=== PATIENT | male | born 1965 | race Caucasian/White ===

== ENCOUNTER 2017-09-05 22:22 | Emergency (ER) | payer SELFPAY ==
[~2017-09-05] VITALS: Ht 177.8 cm; Wt 84.1 kg
[2017-09-06 00:44] VITALS: BP 143/98
== END 2017-09-06 00:47 | disposition home or self-care (01) ==
LOC: EMS 22:24
DX: B35.3 Tinea pedis (principal)
CPT/HCPCS: 99283

== ENCOUNTER 2018-01-23 10:53 | Emergency (ER) | payer MEDICAID ==
[~2018-01-23] VITALS: Ht 182.9 cm; Wt 82.3 kg
[2018-01-23 11:12] LABS: GLUCOSE,POINT OF CARE 135 MG/DL (70-110)
[2018-01-23] MEDS ORDERED: SUCRALFATE 1 GM/10 ML SUSPENSION UDCUP PO ONE (11:45)
[2018-01-23] MEDS ORDERED: PANTOPRAZOLE SODIUM 40 MG/VIAL IVP ONE (11:45)
[2018-01-23] MEDS ORDERED: FAMOTIDINE 10 MG/ML 2 ML VIAL IVP ONE (11:45)
[2018-01-23] MEDS ORDERED: PB/HYOSCY/ATR/SCOP/LIDO/MAALOX 55 ML BOTTLE PO ONE (11:45)
[2018-01-23] MEDS ORDERED: HYDROCHLOROTHIAZIDE 25 MG TABLET PO ONE (11:45)
[2018-01-23 12:22] LABS: BASOPHILS % (AUTO) 0.4 % (0.0-2.0); EOSINOPHILS % (AUTO) 0 % (1.0-6.0); HEMOGLOBIN 17.2 g/dL (13.5-17.5); LYMPHOCYTES # (AUTO) 1.2 K/uL (1.0-4.8); LYMPHOCYTES % (AUTO) 11.1 % (22.0-44.0); MEAN CORPUSCULAR HEMOGLOBIN 32.3 pg (26.0-34.0); MEAN CORPUSCULAR HGB CONC 35.9 G/dL (31.0-37.0); MEAN CORPUSCULAR VOLUME 90 fL (80-100); MONOCYTES # (AUTO) 0.5 K/uL (0.1-1.0); MONOCYTES % (AUTO) 4.1 % (2.0-9.0); NEUTROPHILS # (AUTO) 9.4 K/uL (1.8-7.7); NEUTROPHILS % (AUTO) 84.4 % (40.0-70.0); PLATELET COUNT (AUTO) 292 K/uL (150-450); RED BLOOD CELL COUNT(AUTO) 5.32 MIL/uL (4.50-5.90); RED CELL DISTRIBUTION WIDTH 12.8 % (11.5-14.5)
[2018-01-23 12:23] LABS: HEMATOCRIT 50.9 % (41-53)
[2018-01-23 12:30] LABS: CALCIUM, TOTAL 9.4 mg/dL (8.8-10.5); CREATININE 1.27 mg/dL (0.60-1.30)
[2018-01-23] MEDS ORDERED: BARIUM SULFATE 0.1% SUSPENSION 450 ML BOTTLE PO ONE (12:30)
[2018-01-23 12:37] LABS: ALBUMIN 3.8 g/dL (3.4-5.0); BILIRUBIN,TOTAL 0.8 mg/dL (0.1-1.0); TOTAL PROTEIN, SERUM 8.7 g/dL (6.4-8.2)
[2018-01-23 13:06] VITALS: BP 185/106
[2018-01-23 13:19] LABS: APPEARANCE,URINE CLEAR (CLEAR); BILIRUBIN,URINE NEGATIVE (NEGATIVE); GLUCOSE, URINE (UA) NEGATIVE (NEGATIVE); KETONES,URINE NEGATIVE (NEGATIVE); LEUKOCYTE ESTERASE ,URINE NEGATIVE (NEGATIVE); NITRATE,URINE NEGATIVE (NEGATIVE); PH,URINE 6.5 (5.0-8.0); PROTEIN,URINE SEE CONFIRM (NEGATIVE); UROBILINOGEN,URINE 0.2 mg/dL (<=1.0)
[2018-01-23 13:28] LABS: OCCULT BLOOD,URINE NEGATIVE (NEGATIVE)
[2018-01-23 13:29] LABS: BACTERIA,URINE None Seen /HPF (None Seen); RBC,URINE None Seen /HPF (0-2); SULFOSALICYLIC ACID,URINE 2+ (Negative); WBC,URINE None Seen /HPF (0-5)
== END 2018-01-23 13:20 | disposition home or self-care (01) ==
LOC: EMS 10:54
DX: K27.9 Peptic ulcer, site unspecified, unspecified as acute or chronic, without hemorrhage or perforation (principal); I10 Essential (primary) hypertension; E11.9 Type 2 diabetes mellitus without complications; F12.90 Cannabis use, unspecified, uncomplicated
CPT/HCPCS: 36415; 74022; 80053; 81001; 82962; 83690; 84484; 85025; 93005; 96374; 96375; 99285; C9113; J3490; Z7610 ×2

== ENCOUNTER 2022-06-14 11:32 | Emergency (ER) | payer MEDICAID ==
[~2022-06-14] VITALS: Ht 172.7 cm; Wt 68.2 kg
[2022-06-14] MEDS ORDERED: KETOROLAC TROMETHAMINE 30 MG/ML VIAL IM ONE (12:45)
[2022-06-14 13:37] VITALS: BP 155/88
== END 2022-06-14 13:58 | disposition home or self-care (01) ==
LOC: EMS 11:36
DX: M67.833 Other specified disorders of tendon, right wrist (principal); E11.9 Type 2 diabetes mellitus without complications; I10 Essential (primary) hypertension; F12.90 Cannabis use, unspecified, uncomplicated
CPT/HCPCS: 99283; 82962; 73110; 96372; J1885

== ENCOUNTER 2023-01-15 09:36 | Inpatient (IN) | payer MEDICAID ==
[~2023-01-15] VITALS: Ht 170.2 cm; Wt 67.9 kg
[2023-01-15] MEDS ORDERED: ONDANSETRON HCL 4 MG/2 ML VIAL IVP ONE (10:00)
[2023-01-15] MEDS ORDERED: SODIUM CHLORIDE 0.9% 1,000 ML IV ONE (10:00)
[2023-01-15 10:39] LABS: BASOPHILS % (AUTO) 0.4 % (0.0-2.0); EOSINOPHILS % (AUTO) 0 % (1.0-6.0); HEMATOCRIT 41.9 % (41-53); LYMPHOCYTES # (AUTO) 0.8 K/uL (1.0-4.8); MEAN CORPUSCULAR HEMOGLOBIN 31.4 pg (26.0-34.0); MEAN CORPUSCULAR HGB CONC 33.4 G/dL (31.0-37.0); MEAN CORPUSCULAR VOLUME 94 fL (80-100); MONOCYTES # (AUTO) 0.5 K/uL (0.1-1.0); MONOCYTES % (AUTO) 3.8 % (2.0-9.0); NEUTROPHILS # (AUTO) 10.7 K/uL (1.8-7.7); PLATELET COUNT (AUTO) 278 K/uL (150-450); RED BLOOD CELL COUNT(AUTO) 4.46 MIL/uL (4.50-5.90); RED CELL DISTRIBUTION WIDTH 13.5 % (11.5-14.5)
[2023-01-15 10:40] LABS: NEUTROPHILS % (AUTO) 88.8 % (40.0-70.0)
[2023-01-15 10:50] LABS: CALCIUM, TOTAL 9.5 mg/dL (8.8-10.5); CREATININE 1.68 mg/dL (0.60-1.30); POTASSIUM 3.6 mmol/L (3.5-5.1)
[2023-01-15 10:55] LABS: TOTAL PROTEIN, SERUM 7.9 g/dL (6.4-8.2)
[2023-01-15] MEDS ORDERED: PANTOPRAZOLE SODIUM 40 MG/VIAL IVP ONE (11:30)
[2023-01-15] MEDS ORDERED: PB/HYOSCY/ATR/SCOP/LIDO/MAALOX 55 ML BOTTLE PO ONE (11:30)
[2023-01-15 12:09] LABS: APPEARANCE,URINE CLEAR (CLEAR); BILIRUBIN,URINE NEGATIVE (NEGATIVE); GLUCOSE, URINE (UA) 70-100 mg/dL (NEGATIVE); LEUKOCYTE ESTERASE ,URINE NEGATIVE (NEGATIVE); NITRATE,URINE NEGATIVE (NEGATIVE); OCCULT BLOOD,URINE SMALL (NEGATIVE); PH,URINE 6.5 (5.0-8.0); PROTEIN,URINE 300-600,SEE CONFIRM mg/dL (NEGATIVE); SPECIFIC GRAVITIY, URINE 1.012 (1.003-1.030); UROBILINOGEN,URINE <=1.0 mg/dL (<=1.0)
[2023-01-15 12:15] LABS: AMPHET/METH SCREEN,URINE NEGATIVE (NEGATIVE); BARBITURATE SCREEN, URINE NEGATIVE (NEGATIVE); BENZODIAZEPINES SCREEN,URINE NEGATIVE (NEGATIVE); CANNABINOID SCREEN,URINE POSITIVE (NEGATIVE); COCAINE SCREEN,URINE POSITIVE (NEGATIVE); METHADONE SCREEN, URINE NEGATIVE (NEGATIVE); OPIATE SCREEN,URINE NEGATIVE (NEGATIVE); PHENCYCLIDINE SCREEN,URINE NEGATIVE (NEGATIVE)
[2023-01-15 12:34] LABS: SULFOSALICYLIC ACID,URINE 3+ (Negative)
[2023-01-15 12:35] LABS: BACTERIA,URINE None Seen /HPF (None Seen); WBC,URINE None Seen /HPF (0-5)
[2023-01-15] MEDS ORDERED: MORPHINE SULFATE 4 MG/ML SYRINGE IVP ONE (12:45)
[2023-01-15] MEDS ORDERED: HydrALAZINE HCL 20 MG/ML VIAL IVP ONE (12:45)
[2023-01-15] MEDS: NiCARDipine HCL 25 MG in SODIUM CHLORIDE 0.9% 240 ML IV PRN ×3 (13:01→21:34)
[2023-01-15] MEDS ORDERED: ACETAMINOPHEN 325 MG TABLET PO PRN ×2 (13:45→17:45)
[2023-01-15] MEDS ORDERED: ONDANSETRON HCL 4 MG/2 ML VIAL IVP PRN ×2 (13:45→17:45)
[2023-01-15] MEDS ORDERED: 0.9% SODIUM CHLORIDE 10 ML SYRINGE IVP PRN (13:45)
[2023-01-15] MEDS ORDERED: LORazepam 2 MG/ML VIAL IVP ONE (15:00)
[2023-01-15] MEDS ORDERED: ALBUTEROL SULFATE 2.5 MG/0.5 ML NEB SOLUTION NEB PRN (17:45)
[2023-01-15] MEDS ORDERED: IPRATROPIUM BROMIDE 0.5 MG/2.5 ML NEB SOLUTION NEB PRN (17:45)
[2023-01-15] MEDS ORDERED: DEXTROSE 50%-WATER 25 GM/50 ML SYRINGE IVP PRN (17:45)
[2023-01-15] MEDS ORDERED: ZOLPIDEM TARTRATE 5 MG TABLET PO PRN (17:45)
[2023-01-15] MEDS ORDERED: MAGNESIUM HYDROXIDE SUSPENSION 30 ML UDCUP PO PRN (17:45)
[2023-01-15] MEDS ORDERED: BISACODYL 10 MG RECTAL RECTAL SUPPOSITORY PR PRN (17:45)
[2023-01-15] MEDS ORDERED: MORPHINE SULFATE 2 MG/ML SYRINGE IVP PRN (17:45)
[2023-01-15] MEDS ORDERED: HYDROCODONE/ACETAMINOPHEN 5-325 MG TABLET PO PRN (17:45)
[2023-01-15 20:00] VITALS: BP 145/77
[2023-01-15] MEDS: DOCUSATE SODIUM 100 MG CAPSULE PO SCH (20:23)
[2023-01-15 22:56] LABS: GLUCOSE,POINT OF CARE 128 MG/DL (70-110)
[2023-01-16] VITALS: BP 148/76
[2023-01-16] MEDS: HEPARIN SODIUM,PORCINE 5,000 UNITS/ML VIAL SQ SCH ×3 (00:42→16:00)
[2023-01-16] MEDS: NiCARDipine HCL 25 MG in SODIUM CHLORIDE 0.9% 240 ML IV PRN ×4 (01:01→21:02)
[2023-01-16 04:00] VITALS: BP 152/82
[2023-01-16 05:40] LABS: BASOPHILS % (AUTO) 0.3 % (0.0-2.0); EOSINOPHILS % (AUTO) 0.2 % (1.0-6.0); HEMOGLOBIN 13.5 g/dL (13.5-17.5); LYMPHOCYTES # (AUTO) 2.6 K/uL (1.0-4.8); LYMPHOCYTES % (AUTO) 14.2 % (22.0-44.0); MEAN CORPUSCULAR HEMOGLOBIN 31.7 pg (26.0-34.0); MEAN CORPUSCULAR HGB CONC 33.8 G/dL (31.0-37.0); MEAN CORPUSCULAR VOLUME 94 fL (80-100); MONOCYTES # (AUTO) 1.7 K/uL (0.1-1.0); MONOCYTES % (AUTO) 9.1 % (2.0-9.0); NEUTROPHILS # (AUTO) 13.9 K/uL (1.8-7.7); NEUTROPHILS % (AUTO) 76.2 % (40.0-70.0); PLATELET COUNT (AUTO) 269 K/uL (150-450); RED BLOOD CELL COUNT(AUTO) 4.26 MIL/uL (4.50-5.90); RED CELL DISTRIBUTION WIDTH 13.3 % (11.5-14.5)
[2023-01-16 06:02] LABS: ALBUMIN 3.4 g/dL (3.4-5.0); BILIRUBIN,TOTAL 0.9 mg/dL (0.1-1.0); CALCIUM, TOTAL 8.6 mg/dL (8.8-10.5); CREATININE 1.9 mg/dL (0.60-1.30); POTASSIUM 3.1 mmol/L (3.5-5.1)
[2023-01-16 07:06] LABS: GLUCOSE,POINT OF CARE 109 MG/DL (70-110)
[2023-01-16 08:00] VITALS: BP 163/81
[2023-01-16] MEDS: PANTOPRAZOLE SODIUM 40 MG/VIAL IVP SCH (09:18)
[2023-01-16] MEDS: DOCUSATE SODIUM 100 MG CAPSULE PO SCH ×2 (09:18→22:06)
[2023-01-16] MEDS: INSULIN LISPRO 100 UNITS/ML SQ PRN (11:12)
[2023-01-16 12:00] VITALS: BP 166/84
[2023-01-16] MEDS ORDERED: NIFEdipine 30 MG ER TABLET PO ONE (12:00)
[2023-01-16] MEDS: HydrALAZINE HCL 20 MG/ML VIAL IVP PRN (14:44)
[2023-01-16 16:00] VITALS: BP 134/68
[2023-01-16 20:00] VITALS: BP 138/76
[2023-01-16 20:26] LABS: GLUCOSE,POINT OF CARE 93 MG/DL (70-110)
[2023-01-16 20:26] LABS: GLUCOSE,POINT OF CARE 145 MG/DL (70-110)
[2023-01-16] MEDS ORDERED: POTASSIUM CHLORIDE 20 MEQ ER TABLET PO ONE (22:00)
[2023-01-17] VITALS (7 sets, daily range): BP systolic 138–168; BP diastolic 75–94
[2023-01-17] MEDS: NiCARDipine HCL 25 MG in SODIUM CHLORIDE 0.9% 240 ML IV PRN ×3 (00:05→06:53)
[2023-01-17 05:51] LABS: GLUCOSE,POINT OF CARE 95 MG/DL (70-110)
[2023-01-17 07:52] LABS: GLUCOSE,POINT OF CARE 97 MG/DL (70-110)
[2023-01-17] MEDS: HEPARIN SODIUM,PORCINE 5,000 UNITS/ML VIAL SQ SCH ×3 (07:57→17:07)
[2023-01-17] MEDS: PANTOPRAZOLE SODIUM 40 MG/VIAL IVP SCH (07:58)
[2023-01-17 08:59] LABS: BASOPHILS % (AUTO) 0.8 % (0.0-2.0); EOSINOPHILS % (AUTO) 0.6 % (1.0-6.0); HEMATOCRIT 38.3 % (41-53); HEMOGLOBIN 12.8 g/dL (13.5-17.5); LYMPHOCYTES # (AUTO) 2.4 K/uL (1.0-4.8); LYMPHOCYTES % (AUTO) 21.6 % (22.0-44.0); MEAN CORPUSCULAR HEMOGLOBIN 31.7 pg (26.0-34.0); MEAN CORPUSCULAR HGB CONC 33.5 G/dL (31.0-37.0); MEAN CORPUSCULAR VOLUME 95 fL (80-100); MONOCYTES # (AUTO) 1.2 K/uL (0.1-1.0); MONOCYTES % (AUTO) 11.3 % (2.0-9.0); NEUTROPHILS # (AUTO) 7.2 K/uL (1.8-7.7); NEUTROPHILS % (AUTO) 65.7 % (40.0-70.0); PLATELET COUNT (AUTO) 236 K/uL (150-450); RED BLOOD CELL COUNT(AUTO) 4.05 MIL/uL (4.50-5.90); RED CELL DISTRIBUTION WIDTH 13.2 % (11.5-14.5)
[2023-01-17 09:06] LABS: GLUCOSE,POINT OF CARE 87 MG/DL (70-110)
[2023-01-17 09:13] LABS: CALCIUM, TOTAL 8.8 mg/dL (8.8-10.5); CREATININE 1.87 mg/dL (0.60-1.30)
[2023-01-17] MEDS: LOSARTAN POTASSIUM 25 MG TABLET PO SCH ×2 (09:41→20:53)
[2023-01-17] MEDS: NIFEdipine 30 MG ER TABLET PO SCH (09:41)
[2023-01-17] MEDS: DOCUSATE SODIUM 100 MG CAPSULE PO SCH ×2 (09:41→20:52)
[2023-01-17] MEDS: INSULIN LISPRO 100 UNITS/ML SQ PRN (21:48)
[2023-01-17 21:51] LABS: GLUCOMETER DEV NAME(LOC) 5N.2C; GLUCOSE,POINT OF CARE 125 MG/DL (70-110)
[2023-01-17 22:56] LABS: GLUCOMETER DEV NAME(LOC) 5N.2C; GLUCOSE,POINT OF CARE 181 MG/DL (70-110)
[2023-01-18] MEDS: HEPARIN SODIUM,PORCINE 5,000 UNITS/ML VIAL SQ SCH ×4 (00:19→23:34)
[2023-01-18] MEDS: HydrALAZINE HCL 20 MG/ML VIAL IVP PRN ×3 (02:31→17:25)
[2023-01-18 05:13] VITALS: BP 164/86
[2023-01-18 07:50] VITALS: BP 168/89
[2023-01-18] MEDS: NIFEdipine 30 MG ER TABLET PO SCH (08:07)
[2023-01-18] MEDS: DOCUSATE SODIUM 100 MG CAPSULE PO SCH ×2 (08:08→20:16)
[2023-01-18] MEDS: LOSARTAN POTASSIUM 25 MG TABLET PO SCH (08:08)
[2023-01-18] MEDS: PANTOPRAZOLE SODIUM 40 MG/VIAL IVP SCH (08:08)
[2023-01-18 08:59] VITALS: BP 174/81
[2023-01-18 10:01] LABS: GLUCOMETER DEV NAME(LOC) 5N.2C; GLUCOSE,POINT OF CARE 98 MG/DL (70-110)
[2023-01-18] MEDS: CloNIDine HCL 0.1 MG TABLET PO PRN ×2 (11:11→18:59)
[2023-01-18 12:11] VITALS: BP 179/91
[2023-01-18] MEDS: AmLODIPine BESYLATE 10 MG TABLET PO SCH (12:19)
[2023-01-18 17:12] VITALS: BP 166/93
[2023-01-18 18:36] LABS: GLUCOMETER DEV NAME(LOC) 5N.1C; GLUCOSE,POINT OF CARE 96 MG/DL (70-110)
[2023-01-18 20:03] VITALS: BP 137/71
[2023-01-18] MEDS: LOSARTAN POTASSIUM 50 MG TABLET PO SCH (20:16)
[2023-01-18] MEDS: INSULIN LISPRO 100 UNITS/ML SQ PRN (20:19)
[2023-01-18 22:21] LABS: GLUCOMETER DEV NAME(LOC) 5N.1C; GLUCOSE,POINT OF CARE 125 MG/DL (70-110)
[2023-01-19 00:32] VITALS: BP 135/82
[2023-01-19 05:28] VITALS: BP 131/99
[2023-01-19 07:35] VITALS: BP 174/109
[2023-01-19] MEDS: HydrALAZINE HCL 20 MG/ML VIAL IVP PRN (08:02)
[2023-01-19] MEDS: HEPARIN SODIUM,PORCINE 5,000 UNITS/ML VIAL SQ SCH (08:02)
[2023-01-19] MEDS: DOCUSATE SODIUM 100 MG CAPSULE PO SCH (08:03)
[2023-01-19] MEDS: AmLODIPine BESYLATE 10 MG TABLET PO SCH (08:03)
[2023-01-19] MEDS: LOSARTAN POTASSIUM 50 MG TABLET PO SCH (08:03)
[2023-01-19 08:11] LABS: GLUCOMETER DEV NAME(LOC) 5N.2C; GLUCOSE,POINT OF CARE 105 MG/DL (70-110)
[2023-01-19 08:33] VITALS: BP 168/76
[2023-01-19] MEDS: CloNIDine HCL 0.1 MG TABLET PO PRN (08:34)
[2023-01-19] MEDS ORDERED: PANTOPRAZOLE SODIUM 40 MG DR TABLET PO SCH (09:00)
[2023-01-19 11:04] VITALS: BP 131/73
[2023-01-19] MEDS ORDERED: AMLO-258 PO (11:59)
[2023-01-19] MEDS ORDERED: LOSA-382 PO (11:59)
[2023-01-19 14:35] VITALS: BP 140/77
[2023-01-20 05:41] LABS: GLUCOMETER DEV NAME(LOC) 5N.2C; GLUCOSE,POINT OF CARE 83 MG/DL (70-110)
== END 2023-01-19 15:15 | disposition home or self-care (01) | DRG 199 ==
LOC: EMS 09:36 → ICU 17:50 → EMS 19:15 → 5S 01-17 15:35
PROVIDERS: ADMIT Hospitalist; ATTEND Internal Medicine
DX: I16.1 Hypertensive emergency (principal); N17.9 Acute kidney failure, unspecified; R65.10 Systemic inflammatory response syndrome (SIRS) of non-infectious origin without acute organ dysfunction; F19.10 Other psychoactive substance abuse, uncomplicated; F14.10 Cocaine abuse, uncomplicated; R10.13 Epigastric pain; I10 Essential (primary) hypertension; E11.9 Type 2 diabetes mellitus without complications; Z87.11 Personal history of peptic ulcer disease
CPT/HCPCS: 71045; 74176; 76770; 80048; 80053; 80307; 81001; 81002; 82550; 82962; 83690; 84484; 85025; 93005; 99291; C9113; G0378; J0360; J1644; J2060; J2270; J2405; J3490; J7050; 36415-L1; 36415-TC

== ENCOUNTER 2023-05-27 16:17 | Emergency (ER) | payer MEDICAID, OTHER ==
[~2023-05-27] VITALS: Ht 177.8 cm; Wt 68.2 kg
[~2023-05-27 16:17] MED LIST: AMLO-258 PO; LOSA-382 PO
[2023-05-27 16:23] VITALS: TEMP 98
[2023-05-27] MEDS ORDERED: ONDANSETRON HCL 4 MG/2 ML VIAL IVP ONE (17:15)
[2023-05-27] MEDS ORDERED: AmLODIPine BESYLATE 10 MG TABLET PO ONE (17:15)
[2023-05-27] MEDS ORDERED: SODIUM CHLORIDE 0.9% 1,000 ML IV ONE (17:15)
[2023-05-27 17:57] LABS: BASOPHILS % (AUTO) 0.3 % (0.0-2.0); EOSINOPHILS % (AUTO) 0.1 % (1.0-6.0); HEMATOCRIT 43.9 % (41-53); HEMOGLOBIN 14.2 g/dL (13.5-17.5); LYMPHOCYTES % (AUTO) 13.1 % (22.0-44.0); MEAN CORPUSCULAR HEMOGLOBIN 31.1 pg (26.0-34.0); MEAN CORPUSCULAR HGB CONC 32.4 G/dL (31.0-37.0); MEAN CORPUSCULAR VOLUME 96 fL (80-100); MONOCYTES # (AUTO) 0.4 K/uL (0.1-1.0); MONOCYTES % (AUTO) 4.9 % (2.0-9.0); NEUTROPHILS # (AUTO) 6.4 K/uL (1.8-7.7); NEUTROPHILS % (AUTO) 81.6 % (40.0-70.0); PLATELET COUNT (AUTO) 293 K/uL (150-450); RED BLOOD CELL COUNT(AUTO) 4.58 MIL/uL (4.50-5.90); RED CELL DISTRIBUTION WIDTH 13.4 % (11.5-14.5); WHITE BLOOD COUNT (AUTO) 7.9 K/uL (4.5-11.0)
[2023-05-27 18:01] LABS: ANION GAP 9 mmol/L (8-16); CALCIUM, TOTAL 9.3 mg/dL (8.8-10.5); CARBON DIOXIDE 27 mmol/L (22-29); CHLORIDE 99 mmol/L (98-107); CREATININE 1.66 mg/dL (0.60-1.30); GLOMERULAR FILTR. RATE CALC 43 mL/min (>60); GLUCOSE,RANDOM 157 mg/dL (70-110); POTASSIUM 3.5 mmol/L (3.5-5.1); SODIUM SERUM 135 mmol/L (136-145); UREA NITROGEN, BLOOD 30 mg/dL (7-18)
[2023-05-27 18:08] LABS: TROPONIN I-HIGH SENSITIVITY 34 ng/L (<76)
[2023-05-27 18:09] LABS: LACTIC ACID 1.1 mmol/L (0.4-2.0)
[2023-05-27 18:15] LABS: ALANINE AMINOTRANSFERASE 32 U/L (12-78); ALBUMIN 4.1 g/dL (3.4-5.0); ALKALINE PHOSPHATASE 102 U/L (46-116); ASPARTATE AMINOTRANSFERASE 36 U/L (15-37); BILIRUBIN,TOTAL 1.3 mg/dL (0.1-1.0); LIPASE 66 U/L (16-77); TOTAL PROTEIN, SERUM 7.9 g/dL (6.4-8.2)
[2023-05-27 18:16] LABS: ALCOHOL, BLOOD (SERUM) < 3 mg/dL (0-10)
[2023-05-27] MEDS ORDERED: HydrALAZINE HCL 20 MG/ML VIAL IVP ONE (18:45)
[2023-05-27] MEDS ORDERED: CloNIDine HCL 0.1 MG TABLET PO ONE (18:45)
[2023-05-27 19:59] LABS: APPEARANCE,URINE CLEAR (CLEAR); BILIRUBIN,URINE NEGATIVE (NEGATIVE); COLOR,URINE LIGHT YELLOW (YELLOW); GLUCOSE, URINE (UA) 70-100 mg/dL (NEGATIVE); KETONES,URINE NEGATIVE (NEGATIVE); LEUKOCYTE ESTERASE ,URINE NEGATIVE (NEGATIVE); NITRATE,URINE NEGATIVE (NEGATIVE); OCCULT BLOOD,URINE MODERATE (NEGATIVE); PH,URINE 6.5 (5.0-8.0); PH,URINE DRUG SCREEN 6.5 (5.0-8.0); PROTEIN,URINE >600,SEE CONFIRM mg/dL (NEGATIVE); SPECIFIC GRAVITIY, URINE 1.016 (1.003-1.030); UROBILINOGEN,URINE <=1.0 mg/dL (<=1.0)
[2023-05-27 20:07] LABS: AMPHET/METH SCREEN,URINE NEGATIVE (NEGATIVE); BARBITURATE SCREEN, URINE NEGATIVE (NEGATIVE); BENZODIAZEPINES SCREEN,URINE NEGATIVE (NEGATIVE); CANNABINOID SCREEN,URINE POSITIVE (NEGATIVE); COCAINE SCREEN,URINE NEGATIVE (NEGATIVE); METHADONE SCREEN, URINE NEGATIVE (NEGATIVE); OPIATE SCREEN,URINE NEGATIVE (NEGATIVE); PHENCYCLIDINE SCREEN,URINE NEGATIVE (NEGATIVE)
[2023-05-27 20:08] LABS: ALCOHOL, URINE DRUG SCREEN NEGATIVE (NEGATIVE)
[2023-05-27 20:12] LABS: SULFOSALICYLIC ACID,URINE 2+ (Negative)
[2023-05-27 20:13] LABS: BACTERIA,URINE Few /HPF (None Seen); SQUAMOUS EPITHELIAL CELL,UR Rare /LPF (None Seen)
[2023-05-27 20:25] LABS: TROPONIN I-HIGH SENSITIVITY 50 ng/L (<76)
[2023-05-27] MEDS ORDERED: LOSA-382 PO (20:27)
[2023-05-27] MEDS ORDERED: AMLO-258 PO (20:27)
[2023-05-27 21:37] VITALS: BP 152/77; PULSE 71; RESP 18
== END 2023-05-27 22:15 | disposition home or self-care (01) ==
LOC: EMS 16:18
DX: I12.9 Hypertensive chronic kidney disease with stage 1 through stage 4 chronic kidney disease, or unspecified chronic kidney disease (principal); E11.22 Type 2 diabetes mellitus with diabetic chronic kidney disease; N18.9 Chronic kidney disease, unspecified; R10.13 Epigastric pain; F12.90 Cannabis use, unspecified, uncomplicated
CPT/HCPCS: 99285; 96374; 71045; 96361; 96375; 80053; 81001; 82962; 83605; 83690; 84484; 85025; 36415; 93005; 80307; J0360; J2405; J7030; G0480; 81002

== ENCOUNTER 2023-07-04 22:48 | Inpatient (IN) | payer OTHER ==
[~2023-07-04] VITALS: Ht 165.1 cm; Wt 69.0 kg
[2023-07-04 23:22] LABS: BASOPHILS % (AUTO) 0.8 % (0.0-2.0); EOSINOPHILS % (AUTO) 0.2 % (1.0-6.0); HEMATOCRIT 41.3 % (41-53); HEMOGLOBIN 13.9 g/dL (13.5-17.5); LYMPHOCYTES # (AUTO) 2.7 K/uL (1.0-4.8); LYMPHOCYTES % (AUTO) 18.4 % (22.0-44.0); MEAN CORPUSCULAR HEMOGLOBIN 31.8 pg (26.0-34.0); MEAN CORPUSCULAR HGB CONC 33.5 G/dL (31.0-37.0); MEAN CORPUSCULAR VOLUME 95 fL (80-100); MONOCYTES # (AUTO) 0.7 K/uL (0.1-1.0); MONOCYTES % (AUTO) 4.5 % (2.0-9.0); NEUTROPHILS # (AUTO) 11.3 K/uL (1.8-7.7); NEUTROPHILS % (AUTO) 76.1 % (40.0-70.0); PLATELET COUNT (AUTO) 299 K/uL (150-450); RED BLOOD CELL COUNT(AUTO) 4.35 MIL/uL (4.50-5.90); RED CELL DISTRIBUTION WIDTH 13.5 % (11.5-14.5); WHITE BLOOD COUNT (AUTO) 14.9 K/uL (4.5-11.0)
[2023-07-04 23:29] LABS: CALCIUM, TOTAL 9.4 mg/dL (8.8-10.5); CREATININE 1.79 mg/dL (0.60-1.30); POTASSIUM 4.2 mmol/L (3.5-5.1)
[2023-07-04] MEDS ORDERED: SODIUM CHLORIDE 0.9% 1,000 ML IV ONE (23:30)
[2023-07-04] MEDS ORDERED: ONDANSETRON HCL 4 MG/2 ML VIAL IVP ONE (23:30)
[2023-07-04 23:37] LABS: ALBUMIN 3.9 g/dL (3.4-5.0); BILIRUBIN,TOTAL 0.5 mg/dL (0.1-1.0); TOTAL PROTEIN, SERUM 8.2 g/dL (6.4-8.2)
[2023-07-05] MEDS ORDERED: PANTOPRAZOLE SODIUM 40 MG/VIAL IVP ONE (00:30)
[2023-07-05] MEDS ORDERED: MAG HYDROX/ALUMINUM HYD/SIMETH ES 30 ML SUSPENSION UDCUP PO ONE (00:30)
[2023-07-05] MEDS ORDERED: HydrALAZINE HCL 20 MG/ML VIAL IVP ONE ×3 (00:30→20:45)
[2023-07-05 00:38] LABS: APPEARANCE,URINE CLEAR (CLEAR); BILIRUBIN,URINE NEGATIVE (NEGATIVE); COLOR,URINE COLORLESS (YELLOW); GLUCOSE, URINE (UA) TRACE mg/dL (NEGATIVE); KETONES,URINE NEGATIVE (NEGATIVE); LEUKOCYTE ESTERASE ,URINE NEGATIVE (NEGATIVE); NITRATE,URINE NEGATIVE (NEGATIVE); OCCULT BLOOD,URINE TRACE (NEGATIVE); PROTEIN,URINE 100-200,SEE CONFIRM mg/dL (NEGATIVE); UROBILINOGEN,URINE <=1.0 mg/dL (<=1.0)
[2023-07-05 00:47] LABS: SULFOSALICYLIC ACID,URINE 1+ (Negative)
[2023-07-05 00:48] LABS: BACTERIA,URINE None Seen /HPF (None Seen); RBC,URINE None Seen /HPF (0-2); SQUAMOUS EPITHELIAL CELL,UR None Seen /LPF (None Seen); WBC,URINE None Seen /HPF (0-5)
[2023-07-05] MEDS ORDERED: FentaNYL CITRATE PF 100 MCG/2 ML VIAL IVP ONE (02:45)
[2023-07-05 05:48] LABS: COVID AG,FIA SOURCE NASAL SWAB
[2023-07-05 06:06] LABS: SARS-COV2 (COVID) ANTIGEN,FIA Negative (Negative)
[2023-07-05 08:30] VITALS: BP 189/110; PULSE 73; RESP 17; TEMP 98.7
[2023-07-05 08:32] VITALS: BP 159/107
[2023-07-05] MEDS ORDERED: CloNIDine HCL 0.1 MG TABLET PO ONE (11:15)
[2023-07-05 11:26] VITALS: BP 212/114; PULSE 79; RESP 17; TEMP 99
[2023-07-05] MEDS ORDERED: ACETAMINOPHEN 325 MG TABLET PO PRN (11:45)
[2023-07-05] MEDS ORDERED: INSULIN LISPRO 100 UNITS/ML SQ PRN (11:45)
[2023-07-05] MEDS ORDERED: MAGNESIUM HYDROXIDE SUSPENSION 30 ML UDCUP PO PRN (11:45)
[2023-07-05] MEDS ORDERED: ONDANSETRON HCL 4 MG/2 ML VIAL IVP PRN (11:45)
[2023-07-05] MEDS ORDERED: DEXTROSE 50%-WATER 25 GM/50 ML SYRINGE IVP PRN (11:45)
[2023-07-05] MEDS ORDERED: MORPHINE SULFATE 2 MG/ML SYRINGE IVP PRN (11:45)
[2023-07-05] MEDS: SODIUM CHLORIDE 0.9% 1,000 ML IV SCH (12:40)
[2023-07-05] MEDS: PANTOPRAZOLE SODIUM 40 MG/VIAL IVP SCH (12:40)
[2023-07-05] MEDS ORDERED: PNEUMOCOCCAL VACCINE POLYVALENT 0.5 ML SYRINGE [PPSV23] IM. ONE (15:00)
[2023-07-05] MEDS ORDERED: INFLUENZA VIRUS VACCINE QVS 2023-24 (6MO+)/PF 60 MCG/0.5 ML SYRINGE IM. ONE (15:00)
[2023-07-05 15:44] VITALS: BP 178/93; PULSE 65; RESP 18; TEMP 98.4
[2023-07-05] MEDS: HydrALAZINE HCL 20 MG/ML VIAL IVP PRN (15:46)
[2023-07-05] MEDS: HEPARIN SODIUM,PORCINE 5,000 UNITS/ML VIAL SQ SCH ×2 (15:46→23:49)
[2023-07-05 17:17] LABS: GLUCOMETER DEV NAME(LOC) 5N.1C; GLUCOSE,POINT OF CARE 137 MG/DL (70-110)
[2023-07-05 19:15] LABS: APPEARANCE,URINE CLEAR (CLEAR); BILIRUBIN,URINE NEGATIVE (NEGATIVE); COLOR,URINE LIGHT YELLOW (YELLOW); GLUCOSE, URINE (UA) NEGATIVE (NEGATIVE); KETONES,URINE NEGATIVE (NEGATIVE); LEUKOCYTE ESTERASE ,URINE NEGATIVE (NEGATIVE); NITRATE,URINE NEGATIVE (NEGATIVE); OCCULT BLOOD,URINE TRACE (NEGATIVE); PH,URINE 6.5 (5.0-8.0); PH,URINE DRUG SCREEN 6.5 (5.0-8.0); PROTEIN,URINE 300-600,SEE CONFIRM mg/dL (NEGATIVE); SPECIFIC GRAVITIY, URINE 1.012 (1.003-1.030); UROBILINOGEN,URINE <=1.0 mg/dL (<=1.0)
[2023-07-05 19:24] LABS: ALCOHOL, URINE DRUG SCREEN NEGATIVE (NEGATIVE); AMPHET/METH SCREEN,URINE NEGATIVE (NEGATIVE); BACTERIA,URINE None Seen /HPF (None Seen); BARBITURATE SCREEN, URINE NEGATIVE (NEGATIVE); BENZODIAZEPINES SCREEN,URINE NEGATIVE (NEGATIVE); CANNABINOID SCREEN,URINE POSITIVE (NEGATIVE); COCAINE SCREEN,URINE NEGATIVE (NEGATIVE); METHADONE SCREEN, URINE NEGATIVE (NEGATIVE); OPIATE SCREEN,URINE NEGATIVE (NEGATIVE); PHENCYCLIDINE SCREEN,URINE NEGATIVE (NEGATIVE)
[2023-07-05 19:25] LABS: RBC,URINE None Seen /HPF (0-2); WBC,URINE 0-2 /HPF (0-5)
[2023-07-05] MEDS: DOCUSATE SODIUM 100 MG CAPSULE PO SCH (20:14)
[2023-07-05 20:22] VITALS: BP 169/93; PULSE 61; RESP 19; TEMP 98.3
[2023-07-05] MEDS: AmLODIPine BESYLATE 10 MG TABLET PO SCH (20:57)
[2023-07-05 22:31] VITALS: BP 162/94; PULSE 63
[2023-07-06 00:36] VITALS: BP 156/89; PULSE 71; RESP 17; TEMP 98.4
[2023-07-06 02:06] LABS: GLUCOMETER DEV NAME(LOC) 5N.1C; GLUCOSE,POINT OF CARE 125 MG/DL (70-110)
[2023-07-06 02:06] LABS: GLUCOMETER DEV NAME(LOC) 5N.1C; GLUCOSE,POINT OF CARE 98 MG/DL (70-110)
[2023-07-06 04:26] VITALS: BP 147/101; PULSE 74; RESP 17; TEMP 98.4
[2023-07-06] MEDS: SODIUM CHLORIDE 0.9% 1,000 ML IV SCH ×2 (04:34→21:14)
[2023-07-06 07:54] VITALS: BP 179/97; PULSE 74; RESP 18; TEMP 98.6
[2023-07-06] MEDS: HEPARIN SODIUM,PORCINE 5,000 UNITS/ML VIAL SQ SCH ×2 (08:37→16:34)
[2023-07-06] MEDS: DOCUSATE SODIUM 100 MG CAPSULE PO SCH ×2 (08:37→21:00)
[2023-07-06] MEDS: PANTOPRAZOLE SODIUM 40 MG/VIAL IVP SCH (08:37)
[2023-07-06] MEDS: HydrALAZINE HCL 20 MG/ML VIAL IVP PRN (08:39)
[2023-07-06] MEDS: AmLODIPine BESYLATE 10 MG TABLET PO SCH (09:08)
[2023-07-06 10:53] LABS: BASOPHILS % (AUTO) 0.8 % (0.0-2.0); EOSINOPHILS % (AUTO) 1.5 % (1.0-6.0); HEMATOCRIT 43.2 % (41-53); HEMOGLOBIN 14.6 g/dL (13.5-17.5); LYMPHOCYTES # (AUTO) 2.9 K/uL (1.0-4.8); LYMPHOCYTES % (AUTO) 31.8 % (22.0-44.0); MEAN CORPUSCULAR HGB CONC 33.9 G/dL (31.0-37.0); MEAN CORPUSCULAR VOLUME 95 fL (80-100); MONOCYTES % (AUTO) 10.6 % (2.0-9.0); NEUTROPHILS % (AUTO) 55.3 % (40.0-70.0); PLATELET COUNT (AUTO) 304 K/uL (150-450); RED BLOOD CELL COUNT(AUTO) 4.57 MIL/uL (4.50-5.90); RED CELL DISTRIBUTION WIDTH 13.6 % (11.5-14.5); WHITE BLOOD COUNT (AUTO) 9.1 K/uL (4.5-11.0)
[2023-07-06 11:01] LABS: CALCIUM, TOTAL 8.8 mg/dL (8.8-10.5); CREATININE 1.67 mg/dL (0.60-1.30)
[2023-07-06 11:05] VITALS: BP 180/84; PULSE 59; RESP 18; TEMP 98.3
[2023-07-06] MEDS: LOSARTAN POTASSIUM 25 MG TABLET PO SCH ×2 (11:07→21:13)
[2023-07-06 15:19] VITALS: BP 151/86; PULSE 60; RESP 19; TEMP 98
[2023-07-06 17:21] LABS: GLUCOMETER DEV NAME(LOC) 5N.1C; GLUCOSE,POINT OF CARE 96 MG/DL (70-110)
[2023-07-06 19:46] LABS: GLUCOMETER DEV NAME(LOC) 5N.1C; GLUCOSE,POINT OF CARE 86 MG/DL (70-110)
[2023-07-06 21:31] LABS: GLUCOMETER DEV NAME(LOC) 5S.1B; GLUCOSE,POINT OF CARE 108 MG/DL (70-110)
[2023-07-06 22:51] LABS: GLUCOMETER DEV NAME(LOC) 5N.2C; GLUCOSE,POINT OF CARE 101 MG/DL (70-110)
[2023-07-06 23:51] VITALS: BP 164/91; PULSE 64; RESP 16; TEMP 98.7
[2023-07-07] VITALS (12 sets, daily range): BP systolic 150–196; BP diastolic 80–102; PULSE 57–64; RESP 16–20; TEMP 98–98.4
[2023-07-07] MEDS: HEPARIN SODIUM,PORCINE 5,000 UNITS/ML VIAL SQ SCH ×3 (00:23→16:09)
[2023-07-07] MEDS: HydrALAZINE HCL 20 MG/ML VIAL IVP PRN ×3 (00:27→16:05)
[2023-07-07 06:31] LABS: GLUCOMETER DEV NAME(LOC) 5N.1C; GLUCOSE,POINT OF CARE 107 MG/DL (70-110)
[2023-07-07] MEDS: PANTOPRAZOLE SODIUM 40 MG/VIAL IVP SCH (08:15)
[2023-07-07] MEDS: LOSARTAN POTASSIUM 25 MG TABLET PO SCH (08:17)
[2023-07-07] MEDS: DOCUSATE SODIUM 100 MG CAPSULE PO SCH ×2 (08:17→20:53)
[2023-07-07] MEDS: AmLODIPine BESYLATE 10 MG TABLET PO SCH (08:17)
[2023-07-07] MEDS: CloNIDine HCL 0.1 MG TABLET PO SCH ×2 (10:46→20:53)
[2023-07-07] MEDS: LOSARTAN POTASSIUM 50 MG TABLET PO SCH ×2 (10:46→20:53)
[2023-07-07 12:00] LABS: GLUCOMETER DEV NAME(LOC) 5S.1B; GLUCOSE,POINT OF CARE 81 MG/DL (70-110)
[2023-07-07 17:06] LABS: GLUCOMETER DEV NAME(LOC) 5S.1B; GLUCOSE,POINT OF CARE 93 MG/DL (70-110)
[2023-07-07 22:41] LABS: GLUCOMETER DEV NAME(LOC) 5N.2C; GLUCOSE,POINT OF CARE 117 MG/DL (70-110)
[2023-07-08] VITALS: BP 164/96; PULSE 55; RESP 18; TEMP 98.4
[2023-07-08] MEDS: HEPARIN SODIUM,PORCINE 5,000 UNITS/ML VIAL SQ SCH ×2 (00:10→08:09)
[2023-07-08 04:00] VITALS: BP 143/87; RESP 18; TEMP 98.2
[2023-07-08] MEDS: DOCUSATE SODIUM 100 MG CAPSULE PO SCH (08:08)
[2023-07-08] MEDS: PANTOPRAZOLE SODIUM 40 MG/VIAL IVP SCH (08:08)
[2023-07-08] MEDS: CloNIDine HCL 0.1 MG TABLET PO SCH (08:09)
[2023-07-08] MEDS: AmLODIPine BESYLATE 10 MG TABLET PO SCH (08:09)
[2023-07-08] MEDS: LOSARTAN POTASSIUM 50 MG TABLET PO SCH (08:09)
[2023-07-08 08:34] VITALS: BP 189/90; PULSE 62; RESP 19; TEMP 98.7
[2023-07-08] MEDS: HydrALAZINE HCL 20 MG/ML VIAL IVP PRN (08:54)
[2023-07-08 12:43] VITALS: BP 156/86; PULSE 58; RESP 18; TEMP 97.8
[2023-07-08] MEDS ORDERED: CLON-441 PO (14:05)
[2023-07-08 14:46] LABS: CALCIUM, TOTAL 9.1 mg/dL (8.8-10.5); CREATININE 1.76 mg/dL (0.60-1.30); POTASSIUM 4.4 mmol/L (3.5-5.1)
[2023-07-08 18:02] LABS: GLUCOMETER DEV NAME(LOC) 5N.2C; GLUCOSE,POINT OF CARE 97 MG/DL (70-110)
[2023-07-08 20:06] LABS: GLUCOMETER DEV NAME(LOC) 5N.1C; GLUCOSE,POINT OF CARE 76 MG/DL (70-110)
== END 2023-07-08 15:15 | disposition home or self-care (01) | DRG 48 ==
LOC: EMS 22:49 → 6N 07-05 05:51 → 5S 07-05 06:32
PROVIDERS: ADMIT Internal Medicine; ATTEND Internal Medicine
DX: E11.43 Type 2 diabetes mellitus with diabetic autonomic (poly)neuropathy (principal); N17.9 Acute kidney failure, unspecified; I16.1 Hypertensive emergency; K31.84 Gastroparesis; I10 Essential (primary) hypertension; Z20.822 Contact with and (suspected) exposure to COVID-19; Z87.11 Personal history of peptic ulcer disease; Z83.3 Family history of diabetes mellitus; Z91.199 Patient's noncompliance with other medical treatment and regimen due to unspecified reason
CPT/HCPCS: 71045; 74176; 80048; 80053; 80307; 81001; 81002; 81003; 82962; 83690; 85025; 93005; 99285; C9113; J0360; J1644; J2405; J3010; J7030; 36415-L1; 36415-TC

== ENCOUNTER 2023-11-03 04:52 | Inpatient (IN) | payer OTHER ==
[~2023-11-03] VITALS: Ht 170.2 cm; Wt 67.2 kg
[~2023-11-03 04:52] MED LIST changes: +CLON-441 PO
[2023-11-03 05:28] LABS: EOSINOPHILS % (AUTO) 0.8 % (1.0-6.0); HEMOGLOBIN 14.4 g/dL (13.5-17.5)
[2023-11-03 05:31] LABS: BASOPHILS % (AUTO) 0.6 % (0.0-2.0); HEMATOCRIT 42.9 % (41-53); LYMPHOCYTES # (AUTO) 2.7 K/uL (1.0-4.8); LYMPHOCYTES % (AUTO) 18.8 % (22.0-44.0); MEAN CORPUSCULAR HEMOGLOBIN 31.6 pg (26.0-34.0); MEAN CORPUSCULAR HGB CONC 33.5 G/dL (31.0-37.0); MEAN CORPUSCULAR VOLUME 94 fL (80-100); MONOCYTES # (AUTO) 0.8 K/uL (0.1-1.0); MONOCYTES % (AUTO) 5.5 % (2.0-9.0); NEUTROPHILS # (AUTO) 10.5 K/uL (1.8-7.7); NEUTROPHILS % (AUTO) 74.3 % (40.0-70.0); PLATELET COUNT (AUTO) 367 K/uL (150-450); RED BLOOD CELL COUNT(AUTO) 4.55 MIL/uL (4.50-5.90); RED CELL DISTRIBUTION WIDTH 13.1 % (11.5-14.5); WHITE BLOOD COUNT (AUTO) 14.2 K/uL (4.5-11.0)
[2023-11-03 05:39] LABS: APPEARANCE,URINE CLEAR (CLEAR); BILIRUBIN,URINE NEGATIVE (NEGATIVE); COLOR,URINE COLORLESS (YELLOW); GLUCOSE, URINE (UA) 70-100 mg/dL (NEGATIVE); KETONES,URINE NEGATIVE (NEGATIVE); LEUKOCYTE ESTERASE ,URINE NEGATIVE (NEGATIVE); NITRATE,URINE NEGATIVE (NEGATIVE); OCCULT BLOOD,URINE SMALL (NEGATIVE); PH,URINE 6.5 (5.0-8.0); PROTEIN,URINE 300-600,SEE CONFIRM mg/dL (NEGATIVE); SPECIFIC GRAVITIY, URINE 1.012 (1.003-1.030); UROBILINOGEN,URINE <=1.0 mg/dL (<=1.0)
[2023-11-03] MEDS: SODIUM CHLORIDE 0.9% 1,000 ML IV ONE (05:39)
[2023-11-03 05:40] LABS: PH,URINE DRUG SCREEN 6.5 (5.0-8.0)
[2023-11-03] MEDS: ONDANSETRON HCL 4 MG/2 ML VIAL IVP ONE (05:42)
[2023-11-03 05:45] LABS: AMPHET/METH SCREEN,URINE NEGATIVE (NEGATIVE); BARBITURATE SCREEN, URINE NEGATIVE (NEGATIVE); BENZODIAZEPINES SCREEN,URINE NEGATIVE (NEGATIVE); CANNABINOID SCREEN,URINE POSITIVE (NEGATIVE); COCAINE SCREEN,URINE NEGATIVE (NEGATIVE); METHADONE SCREEN, URINE NEGATIVE (NEGATIVE); OPIATE SCREEN,URINE NEGATIVE (NEGATIVE); PHENCYCLIDINE SCREEN,URINE NEGATIVE (NEGATIVE)
[2023-11-03 06:00] LABS: ALCOHOL, URINE DRUG SCREEN NEGATIVE (NEGATIVE)
[2023-11-03 06:10] LABS: BACTERIA,URINE None Seen /HPF (None Seen); SQUAMOUS EPITHELIAL CELL,UR Few /LPF (None Seen); SULFOSALICYLIC ACID,URINE 4+ (Negative); WBC,URINE 0-2 /HPF (0-5)
[2023-11-03 06:28] LABS: TROPONIN I-HIGH SENSITIVITY 28 ng/L (<76)
[2023-11-03 06:33] LABS: CALCIUM, TOTAL 9.4 mg/dL (8.8-10.5); CREATININE 1.68 mg/dL (0.60-1.30); POTASSIUM 3.6 mmol/L (3.5-5.1)
[2023-11-03] MEDS: NITROGLYCERIN 2% (1 GM=INCH) OINTMENT PACKET TP ONE (06:36)
[2023-11-03] MEDS: CloNIDine HCL 0.1 MG TABLET PO ONE (06:36)
[2023-11-03 06:39] LABS: ALBUMIN 3.9 g/dL (3.4-5.0); BILIRUBIN,TOTAL 0.7 mg/dL (0.1-1.0); TOTAL PROTEIN, SERUM 8.1 g/dL (6.4-8.2)
[2023-11-03] MEDS: ENALAPRILAT DIHYDRATE 2.5 MG/2 ML VIAL IVP ONE (06:39)
[2023-11-03] MEDS: ASPIRIN 81 MG CHEWABLE TABLET PO ONE (07:07)
[2023-11-03] MEDS ORDERED: FentaNYL CITRATE PF 100 MCG/2 ML VIAL ONE (07:27)
[2023-11-03] MEDS: FentaNYL CITRATE PF 100 MCG/2 ML VIAL IVP ONE (07:28)
[2023-11-03] MEDS: NITROPRUSSIDE SODIUM 50 MG in DEXTROSE 5%-WATER 248 ML IV PRN (07:29)
[2023-11-03 07:35] LABS: TROPONIN I-HIGH SENSITIVITY 23 ng/L (<76)
[2023-11-03] MEDS ORDERED: DEXTROSE 50%-WATER 25 GM/50 ML SYRINGE IVP PRN (08:30)
[2023-11-03] MEDS ORDERED: ACETAMINOPHEN 325 MG TABLET PO PRN (08:30)
[2023-11-03] MEDS ORDERED: OxyCODONE HCL/ACETAMINOPHEN 5-325 MG TABLET PO PRN (08:30)
[2023-11-03] MEDS ORDERED: ONDANSETRON HCL 4 MG/2 ML VIAL IVP PRN (08:30)
[2023-11-03] MEDS ORDERED: ZOLPIDEM TARTRATE 5 MG TABLET PO PRN (08:30)
[2023-11-03] MEDS: DOCUSATE SODIUM 100 MG CAPSULE PO SCH (09:06)
[2023-11-03] MEDS: AmLODIPine BESYLATE 10 MG TABLET PO SCH (09:07)
[2023-11-03] MEDS: LOSARTAN POTASSIUM 25 MG TABLET PO SCH (09:07)
[2023-11-03] MEDS: FAMOTIDINE 20 MG TABLET PO SCH (09:07)
[2023-11-03] MEDS: INSULIN LISPRO 100 UNITS/ML SQ PRN (14:26)
[2023-11-03 14:30] VITALS: BP 165/85; PULSE 76; RESP 25; TEMP 97.7; O2SAT 98
[2023-11-03 14:35] LABS: GLUCOMETER DEV NAME(LOC) ICUN.5; GLUCOSE,POINT OF CARE 169 MG/DL (70-110)
[2023-11-03 16:00] VITALS: BP 130/68; PULSE 60; RESP 18; TEMP 98.2; O2SAT 95
[2023-11-03 17:11] LABS: GLUCOMETER DEV NAME(LOC) ICU.S6; GLUCOSE,POINT OF CARE 103 MG/DL (70-110)
[2023-11-03 20:00] VITALS: BP 157/89; PULSE 60; RESP 18; TEMP 98.7
[2023-11-03] MEDS: CHLORHEXIDINE GLUCONATE 2% TOWELETTE [2'S/6'S] TP SCH (21:09)
[2023-11-03 21:21] LABS: GLUCOMETER DEV NAME(LOC) ICUN.5; GLUCOSE,POINT OF CARE 115 MG/DL (70-110)
[2023-11-04] VITALS: BP 138/85; PULSE 50; RESP 16; TEMP 98.7
[2023-11-04 04:00] VITALS: BP 154/86; PULSE 51; RESP 18; TEMP 98.8
[2023-11-04 05:12] LABS: BASOPHILS % (AUTO) 0.5 % (0.0-2.0); EOSINOPHILS % (AUTO) 0.4 % (1.0-6.0); HEMOGLOBIN 12.6 g/dL (13.5-17.5); LYMPHOCYTES # (AUTO) 2.8 K/uL (1.0-4.8); LYMPHOCYTES % (AUTO) 17.6 % (22.0-44.0); MEAN CORPUSCULAR HEMOGLOBIN 31.9 pg (26.0-34.0); MEAN CORPUSCULAR HGB CONC 33.9 G/dL (31.0-37.0); MEAN CORPUSCULAR VOLUME 94 fL (80-100); MONOCYTES # (AUTO) 1.4 K/uL (0.1-1.0); MONOCYTES % (AUTO) 8.9 % (2.0-9.0); NEUTROPHILS # (AUTO) 11.4 K/uL (1.8-7.7); NEUTROPHILS % (AUTO) 72.6 % (40.0-70.0); PLATELET COUNT (AUTO) 308 K/uL (150-450); RED BLOOD CELL COUNT(AUTO) 3.93 MIL/uL (4.50-5.90); RED CELL DISTRIBUTION WIDTH 13.2 % (11.5-14.5); WHITE BLOOD COUNT (AUTO) 15.8 K/uL (4.5-11.0)
[2023-11-04 05:21] LABS: GLUCOMETER DEV NAME(LOC) ICU.S6; GLUCOSE,POINT OF CARE 106 MG/DL (70-110)
[2023-11-04 05:27] LABS: BILIRUBIN,TOTAL 0.8 mg/dL (0.1-1.0); CALCIUM, TOTAL 8.7 mg/dL (8.8-10.5); CREATININE 1.83 mg/dL (0.60-1.30); POTASSIUM 3.9 mmol/L (3.5-5.1); TOTAL PROTEIN, SERUM 6.5 g/dL (6.4-8.2)
[2023-11-04 08:00] VITALS: BP 180/92; PULSE 71; RESP 15; TEMP 98.2
[2023-11-04] MEDS: LOSARTAN POTASSIUM 25 MG TABLET PO ONE (10:08)
[2023-11-04 10:50] LABS: APPEARANCE,URINE CLEAR (CLEAR); BILIRUBIN,URINE NEGATIVE (NEGATIVE); COLOR,URINE COLORLESS (YELLOW); GLUCOSE, URINE (UA) NEGATIVE (NEGATIVE); KETONES,URINE NEGATIVE (NEGATIVE); LEUKOCYTE ESTERASE ,URINE NEGATIVE (NEGATIVE); NITRATE,URINE NEGATIVE (NEGATIVE); OCCULT BLOOD,URINE NEGATIVE (NEGATIVE); PROTEIN,URINE 30-70 mg/dL (NEGATIVE); SPECIFIC GRAVITIY, URINE 1.007 (1.003-1.030); UROBILINOGEN,URINE <=1.0 mg/dL (<=1.0)
[2023-11-04 12:00] VITALS: BP 192/119; PULSE 70; RESP 16; TEMP 98.6
[2023-11-04] MEDS: NITROPRUSSIDE SODIUM 50 MG in DEXTROSE 5%-WATER 248 ML IV PRN (12:36)
[2023-11-04 13:01] LABS: GLUCOMETER DEV NAME(LOC) ICU.S6; GLUCOSE,POINT OF CARE 94 MG/DL (70-110)
[2023-11-04 16:00] VITALS: BP 177/94; PULSE 79; RESP 20; TEMP 98.5
[2023-11-04 18:26] LABS: GLUCOMETER DEV NAME(LOC) ICU.S6; GLUCOSE,POINT OF CARE 91 MG/DL (70-110)
[2023-11-04 20:00] VITALS: BP 178/102; PULSE 62; RESP 19; TEMP 98.6
[2023-11-04] MEDS: LOSARTAN POTASSIUM 50 MG TABLET PO SCH (20:58)
[2023-11-04 22:21] LABS: GLUCOMETER DEV NAME(LOC) ICU.S6; GLUCOSE,POINT OF CARE 116 MG/DL (70-110)
[2023-11-05] VITALS: BP 154/97; PULSE 54; RESP 15; TEMP 98.7
[2023-11-05 04:00] VITALS: BP 169/81; PULSE 58; RESP 12; TEMP 98.3
[2023-11-05 06:00] LABS: BASOPHILS % (AUTO) 0.6 % (0.0-2.0); EOSINOPHILS % (AUTO) 1.9 % (1.0-6.0); HEMATOCRIT 38.5 % (41-53); HEMOGLOBIN 12.9 g/dL (13.5-17.5); LYMPHOCYTES # (AUTO) 2.6 K/uL (1.0-4.8); LYMPHOCYTES % (AUTO) 24.8 % (22.0-44.0); MEAN CORPUSCULAR HEMOGLOBIN 31.5 pg (26.0-34.0); MEAN CORPUSCULAR HGB CONC 33.6 G/dL (31.0-37.0); MEAN CORPUSCULAR VOLUME 94 fL (80-100); MONOCYTES # (AUTO) 0.9 K/uL (0.1-1.0); MONOCYTES % (AUTO) 8.9 % (2.0-9.0); NEUTROPHILS # (AUTO) 6.7 K/uL (1.8-7.7); NEUTROPHILS % (AUTO) 63.8 % (40.0-70.0); PLATELET COUNT (AUTO) 309 K/uL (150-450); RED BLOOD CELL COUNT(AUTO) 4.11 MIL/uL (4.50-5.90); RED CELL DISTRIBUTION WIDTH 12.9 % (11.5-14.5); WHITE BLOOD COUNT (AUTO) 10.4 K/uL (4.5-11.0)
[2023-11-05 06:01] LABS: CALCIUM, TOTAL 8.8 mg/dL (8.8-10.5); CREATININE 1.69 mg/dL (0.60-1.30)
[2023-11-05 08:00] VITALS: BP 218/135; PULSE 65; RESP 11; TEMP 98.8
[2023-11-05] MEDS: AmLODIPine BESYLATE 10 MG TABLET PO SCH (08:49)
[2023-11-05] MEDS: LOSARTAN POTASSIUM 50 MG TABLET PO SCH (08:50)
[2023-11-05 11:06] LABS: GLUCOMETER DEV NAME(LOC) ICU.S6; GLUCOSE,POINT OF CARE 105 MG/DL (70-110)
[2023-11-05 12:00] VITALS: BP 194/98; PULSE 69; RESP 16; TEMP 98.3
[2023-11-05 12:46] LABS: GLUCOMETER DEV NAME(LOC) ICUN.5; GLUCOSE,POINT OF CARE 139 MG/DL (70-110)
[2023-11-05 16:00] VITALS: BP 188/106; PULSE 94; RESP 11; TEMP 99
[2023-11-05 20:00] VITALS: BP 163/88; PULSE 83; RESP 13; TEMP 98.4
[2023-11-05 21:36] LABS: GLUCOMETER DEV NAME(LOC) ICUN.5; GLUCOSE,POINT OF CARE 126 MG/DL (70-110)
[2023-11-06] VITALS: BP 149/83; PULSE 73; RESP 10; TEMP 98.4
[2023-11-06 04:00] VITALS: BP 120/57; PULSE 61; RESP 17; TEMP 98.6
[2023-11-06 05:28] LABS: BASOPHILS % (AUTO) 0.9 % (0.0-2.0); EOSINOPHILS % (AUTO) 3.1 % (1.0-6.0); HEMATOCRIT 38.7 % (41-53); HEMOGLOBIN 12.8 g/dL (13.5-17.5); LYMPHOCYTES # (AUTO) 2.8 K/uL (1.0-4.8); LYMPHOCYTES % (AUTO) 23.2 % (22.0-44.0); MEAN CORPUSCULAR HEMOGLOBIN 31.5 pg (26.0-34.0); MEAN CORPUSCULAR HGB CONC 33.1 G/dL (31.0-37.0); MEAN CORPUSCULAR VOLUME 95 fL (80-100); MONOCYTES # (AUTO) 1.3 K/uL (0.1-1.0); MONOCYTES % (AUTO) 10.6 % (2.0-9.0); NEUTROPHILS # (AUTO) 7.4 K/uL (1.8-7.7); NEUTROPHILS % (AUTO) 62.2 % (40.0-70.0); PLATELET COUNT (AUTO) 345 K/uL (150-450); RED BLOOD CELL COUNT(AUTO) 4.07 MIL/uL (4.50-5.90); RED CELL DISTRIBUTION WIDTH 13.2 % (11.5-14.5); WHITE BLOOD COUNT (AUTO) 11.9 K/uL (4.5-11.0)
[2023-11-06 05:41] LABS: CALCIUM, TOTAL 8.9 mg/dL (8.8-10.5); CREATININE 1.79 mg/dL (0.60-1.30); POTASSIUM 4.2 mmol/L (3.5-5.1)
[2023-11-06 06:36] LABS: GLUCOMETER DEV NAME(LOC) ICUN.5; GLUCOSE,POINT OF CARE 107 MG/DL (70-110)
[2023-11-06 08:00] VITALS: BP 189/95; PULSE 82; RESP 19; TEMP 98.3
[2023-11-06] MEDS: CloNIDine HCL 0.1 MG TABLET PO SCH (08:25)
[2023-11-06 12:00] VITALS: BP 167/55; PULSE 75; RESP 16; TEMP 98
[2023-11-06 16:00] VITALS: BP 153/94; PULSE 63; RESP 18; TEMP 97.8
[2023-11-06 18:37] LABS: GLUCOMETER DEV NAME(LOC) ICU.S6; GLUCOSE,POINT OF CARE 97 MG/DL (70-110)
[2023-11-06 18:37] LABS: GLUCOMETER DEV NAME(LOC) ICU.S6; GLUCOSE,POINT OF CARE 110 MG/DL (70-110)
[2023-11-06 20:00] VITALS: BP 173/104; PULSE 60; RESP 18; TEMP 98.2
[2023-11-06 21:36] LABS: GLUCOMETER DEV NAME(LOC) ICU.S6; GLUCOSE,POINT OF CARE 93 MG/DL (70-110)
[2023-11-07] VITALS: BP 159/75; PULSE 56; RESP 18; TEMP 98.6
[2023-11-07 04:00] VITALS: BP 136/76; PULSE 76; RESP 21; TEMP 98.4
[2023-11-07 05:31] LABS: BASOPHILS % (AUTO) 0.9 % (0.0-2.0); HEMATOCRIT 39.2 % (41-53); HEMOGLOBIN 12.9 g/dL (13.5-17.5); LYMPHOCYTES # (AUTO) 2.4 K/uL (1.0-4.8); MEAN CORPUSCULAR HGB CONC 32.8 G/dL (31.0-37.0); MEAN CORPUSCULAR VOLUME 95 fL (80-100); MONOCYTES # (AUTO) 1.1 K/uL (0.1-1.0); MONOCYTES % (AUTO) 10.8 % (2.0-9.0); NEUTROPHILS % (AUTO) 60.3 % (40.0-70.0); PLATELET COUNT (AUTO) 342 K/uL (150-450); RED BLOOD CELL COUNT(AUTO) 4.15 MIL/uL (4.50-5.90); RED CELL DISTRIBUTION WIDTH 13.2 % (11.5-14.5)
[2023-11-07 05:40] LABS: CALCIUM, TOTAL 9.1 mg/dL (8.8-10.5); CREATININE 1.79 mg/dL (0.60-1.30); POTASSIUM 4.4 mmol/L (3.5-5.1)
[2023-11-07 06:36] LABS: GLUCOMETER DEV NAME(LOC) ICU.S6; GLUCOSE,POINT OF CARE 67 MG/DL (70-110)
[2023-11-07 07:00] LABS: GLUCOMETER DEV NAME(LOC) ICU.S6; GLUCOSE,POINT OF CARE 118 MG/DL (70-110)
[2023-11-07 08:00] VITALS: BP 183/90; PULSE 65; RESP 12; TEMP 98.2; O2SAT 98
[2023-11-07] MEDS ORDERED: CLON0.1T2 PO (08:10)
[2023-11-07] MEDS ORDERED: LOSA-382 PO (08:11)
[2023-11-07] MEDS ORDERED: AMLO-258 PO (08:12)
== END 2023-11-07 10:00 | disposition home or self-care (01) | DRG 199 ==
LOC: EMS 04:52 → ICUN 08:01 → ICU 12:18
PROVIDERS: ADMIT Internal Medicine; ATTEND Internal Medicine
DX: I16.1 Hypertensive emergency (principal); N17.9 Acute kidney failure, unspecified; N18.30 Chronic kidney disease, stage 3 unspecified; Z91.199 Patient's noncompliance with other medical treatment and regimen due to unspecified reason; E11.22 Type 2 diabetes mellitus with diabetic chronic kidney disease; I12.9 Hypertensive chronic kidney disease with stage 1 through stage 4 chronic kidney disease, or unspecified chronic kidney disease; Z83.3 Family history of diabetes mellitus
CPT/HCPCS: 71045; 74176; 80048; 80053; 80307; 81001; 81002; 81003; 82962; 83690; 84484; 85025; 87081; 93005; 99291; J2405; J3010; J3490; J7060; 36415-L1; 36415-TC

== ENCOUNTER 2024-12-15 00:33 | Inpatient (IN) | payer OTHER ==
[~2024-12-15] VITALS: Ht 177.8 cm; Wt 69.8 kg
[~2024-12-15 00:33] MED LIST changes: -CLON-441 PO; +CLON0.1T2 PO; +HYDR25TA84 PO; +TAMS0.4C94 PO
[2024-12-15] MEDS ORDERED: 0.9% SODIUM CHLORIDE 10 ML SYRINGE IVP PRN (01:00)
[2024-12-15 01:18] LABS: ANION GAP 11 mmol/L (8-16); CALCIUM, TOTAL 9.6 mg/dL (8.8-10.5); CARBON DIOXIDE 26 mmol/L (22-29); CHLORIDE 101 mmol/L (98-107); CREATININE 1.74 mg/dL (0.60-1.30); GLOMERULAR FILTR. RATE CALC 41 mL/min (>60); GLUCOSE,RANDOM 146 mg/dL (70-110); SODIUM SERUM 138 mmol/L (136-145); UREA NITROGEN, BLOOD 27 mg/dL (7-18)
[2024-12-15 01:20] LABS: BASOPHILS % (AUTO) 0.4 % (0.0-2.0); EOSINOPHILS % (AUTO) 0.3 % (1.0-6.0); HEMATOCRIT 41.9 % (41-53); HEMOGLOBIN 13.8 g/dL (13.5-17.5); LYMPHOCYTES # (AUTO) 1.4 K/uL (1.0-4.8); LYMPHOCYTES % (AUTO) 10.2 % (22.0-44.0); MEAN CORPUSCULAR HEMOGLOBIN 30.5 pg (26.0-34.0); MEAN CORPUSCULAR HGB CONC 32.8 G/dL (31.0-37.0); MEAN CORPUSCULAR VOLUME 93 fL (80-100); MONOCYTES # (AUTO) 0.4 K/uL (0.1-1.0); MONOCYTES % (AUTO) 3.1 % (2.0-9.0); NEUTROPHILS # (AUTO) 11.5 K/uL (1.8-7.7); PLATELET COUNT (AUTO) 294 K/uL (150-450); RED CELL DISTRIBUTION WIDTH 14.2 % (11.5-14.5); WHITE BLOOD COUNT (AUTO) 13.4 K/uL (4.5-11.0)
[2024-12-15] MEDS: CefTRIAXone 1 GM/DEXTROSE 50 ML IV ONE (01:21)
[2024-12-15] MEDS: ONDANSETRON HCL 4 MG/2 ML VIAL IVP ONE (01:23)
[2024-12-15] MEDS: HYDROmorphone HCL 2 MG/ML SYRINGE IVP ONE ×2 (01:23→04:29)
[2024-12-15] MEDS: SODIUM CHLORIDE 0.9% 2,250 ML IV ONE (01:24)
[2024-12-15 01:26] LABS: ALBUMIN 3.8 g/dL (3.4-5.0); BILIRUBIN,DIRECT 0.1 mg/dL (0.00-0.20); BILIRUBIN,TOTAL 0.4 mg/dL (0.1-1.0); TOTAL PROTEIN, SERUM 7.9 g/dL (6.4-8.2)
[2024-12-15 01:28] LABS: CREATINE KINASE, TOTAL ONLY 517 U/L (39-308); TROPONIN I-HIGH SENSITIVITY 13 ng/L (<76)
[2024-12-15 01:34] LABS: LACTIC ACID 2.2 mmol/L (0.4-2.0)
[2024-12-15 01:38] LABS: PROTHROMBIN TIME 10.8 SEC (9.4-11.6)
[2024-12-15 01:44] LABS: B-TYPE NATRIURETIC PEPTIDE 26 pg/mL (0-100)
[2024-12-15 02:39] LABS: APPEARANCE,URINE CLEAR (CLEAR); BILIRUBIN,URINE NEGATIVE (NEGATIVE); COLOR,URINE COLORLESS (YELLOW); GLUCOSE, URINE (UA) NEGATIVE (NEGATIVE); KETONES,URINE NEGATIVE (NEGATIVE); LEUKOCYTE ESTERASE ,URINE NEGATIVE (NEGATIVE); NITRATE,URINE NEGATIVE (NEGATIVE); OCCULT BLOOD,URINE NEGATIVE (NEGATIVE); PROTEIN,URINE 300-600,SEE CONFIRM mg/dL (NEGATIVE); SPECIFIC GRAVITIY, URINE 1.009 (1.003-1.030); UROBILINOGEN,URINE <=1.0 mg/dL (<=1.0)
[2024-12-15 02:44] LABS: SULFOSALICYLIC ACID,URINE 1+ (Negative)
[2024-12-15 02:45] LABS: BACTERIA,URINE Rare /HPF (None Seen); RBC,URINE 0-2 /HPF (0-2); WBC,URINE 0-2 /HPF (0-5)
[2024-12-15 02:52] LABS: ALCOHOL, URINE DRUG SCREEN NEGATIVE (NEGATIVE); AMPHET/METH SCREEN,URINE NEGATIVE (NEGATIVE); BARBITURATE SCREEN, URINE NEGATIVE (NEGATIVE); BENZODIAZEPINES SCREEN,URINE NEGATIVE (NEGATIVE); CANNABINOID SCREEN,URINE POSITIVE (NEGATIVE); COCAINE SCREEN,URINE POSITIVE (NEGATIVE); METHADONE SCREEN, URINE NEGATIVE (NEGATIVE); OPIATE SCREEN,URINE NEGATIVE (NEGATIVE); PHENCYCLIDINE SCREEN,URINE NEGATIVE (NEGATIVE)
[2024-12-15] MEDS: HydrALAZINE HCL 20 MG/ML VIAL IVP ONE (04:29)
[2024-12-15] MEDS: AmLODIPine BESYLATE 10 MG TABLET PO ONE (04:29)
[2024-12-15] MEDS: SODIUM CHLORIDE 0.9% 1,000 ML IV ONE (04:31)
[2024-12-15] MEDS: LABETALOL HCL 5 MG/ML 20 ML VIAL IVP ONE ×2 (06:03→06:23)
[2024-12-15] MEDS: ONDANSETRON HCL 4 MG/2 ML VIAL IVP PRN (06:30)
[2024-12-15] MEDS: LOSARTAN POTASSIUM 50 MG TABLET PO ONE (06:57)
[2024-12-15] MEDS: CloNIDine HCL 0.1 MG TABLET PO ONE (06:58)
[2024-12-15 08:51] LABS: GLUCOMETER DEV NAME(LOC) ER.7; GLUCOSE,POINT OF CARE 109 MG/DL (70-110)
[2024-12-15] MEDS ORDERED: DEXTROSE 50%-WATER 25 GM/50 ML SYRINGE IVP PRN (09:00)
[2024-12-15 09:59] VITALS: BP 174/87; PULSE 63; RESP 18; TEMP 98.1; O2SAT 99
[2024-12-15] MEDS: SODIUM CHLORIDE 0.9% 1,000 ML IV SCH (10:01)
[2024-12-15] MEDS: FAMOTIDINE 20 MG TABLET PO SCH (10:10)
[2024-12-15] MEDS: DOCUSATE SODIUM 100 MG CAPSULE PO SCH (10:10)
[2024-12-15] MEDS: CloNIDine HCL 0.1 MG TABLET PO PRN (10:10)
[2024-12-15 12:38] VITALS: BP 146/80; PULSE 65; RESP 19; TEMP 98.2; O2SAT 100
[2024-12-15 14:36] LABS: GLUCOMETER DEV NAME(LOC) 5N.1D; GLUCOSE,POINT OF CARE 118 MG/DL (70-110)
[2024-12-15 16:33] VITALS: BP 143/78; PULSE 67; RESP 20; TEMP 98; O2SAT 98
[2024-12-15 17:00] LABS: APPEARANCE,URINE CLEAR (CLEAR); BILIRUBIN,URINE NEGATIVE (NEGATIVE); COLOR,URINE LIGHT YELLOW (YELLOW); GLUCOSE, URINE (UA) 70-100 mg/dL (NEGATIVE); KETONES,URINE NEGATIVE (NEGATIVE); LEUKOCYTE ESTERASE ,URINE NEGATIVE (NEGATIVE); NITRATE,URINE NEGATIVE (NEGATIVE); OCCULT BLOOD,URINE TRACE (NEGATIVE); PROTEIN,URINE 300-600,SEE CONFIRM mg/dL (NEGATIVE); SPECIFIC GRAVITIY, URINE 1.011 (1.003-1.030); UROBILINOGEN,URINE <=1.0 mg/dL (<=1.0)
[2024-12-15 17:36] LABS: BACTERIA,URINE Rare /HPF (None Seen); RBC,URINE 0-2 /HPF (0-2); SQUAMOUS EPITHELIAL CELL,UR Rare /LPF (None Seen)
[2024-12-15 20:08] VITALS: BP 168/89; PULSE 55; RESP 19; TEMP 98.2; O2SAT 98
[2024-12-15 22:22] VITALS: BP 143/76; PULSE 53; RESP 18; O2SAT 97
[2024-12-15 23:25] LABS: GLUCOMETER DEV NAME(LOC) 5N.1D; GLUCOSE,POINT OF CARE 133 MG/DL (70-110)
[2024-12-15 23:25] LABS: GLUCOMETER DEV NAME(LOC) 5N.1D; GLUCOSE,POINT OF CARE 93 MG/DL (70-110)
[2024-12-16] VITALS (7 sets, daily range): BP systolic 149–185; BP diastolic 78–95; PULSE 47–61; RESP 17–19; TEMP 97.5–98.2; O2SAT 97–99
[2024-12-16 07:12] LABS: CALCIUM, TOTAL 8.4 mg/dL (8.8-10.5); CREATININE 1.59 mg/dL (0.60-1.30)
[2024-12-16 08:16] LABS: GLUCOMETER DEV NAME(LOC) 5N.1D; GLUCOSE,POINT OF CARE 105 MG/DL (70-110)
[2024-12-16] MEDS: AmLODIPine BESYLATE 5 MG TABLET PO SCH (12:46)
[2024-12-16] MEDS: INSULIN LISPRO 100 UNITS/ML SQ PRN (12:48)
[2024-12-16 13:20] LABS: GLUCOMETER DEV NAME(LOC) 5S.2D; GLUCOSE,POINT OF CARE 162 MG/DL (70-110)
[2024-12-16 19:16] LABS: GLUCOMETER DEV NAME(LOC) 5S.2D; GLUCOSE,POINT OF CARE 95 MG/DL (70-110)
[2024-12-16 21:06] LABS: GLUCOMETER DEV NAME(LOC) 5N.1D; GLUCOSE,POINT OF CARE 131 MG/DL (70-110)
[2024-12-16] MEDS: HydrALAZINE HCL 20 MG/ML VIAL IVP PRN (23:33)
[2024-12-17] VITALS (13 sets, daily range): BP systolic 137–216; BP diastolic 74–109; PULSE 56–90; RESP 17–25; TEMP 98.1–98.4; O2SAT 96–100
[2024-12-17] MEDS: MORPHINE SULFATE 2 MG/ML SYRINGE IVP PRN (04:10)
[2024-12-17] MEDS: ACETAMINOPHEN 325 MG TABLET PO PRN (05:18)
[2024-12-17 07:23] LABS: CALCIUM, TOTAL 9.2 mg/dL (8.8-10.5); CREATININE 1.59 mg/dL (0.60-1.30); POTASSIUM 3.8 mmol/L (3.5-5.1)
[2024-12-17 08:31] LABS: GLUCOMETER DEV NAME(LOC) 5S.2D; GLUCOSE,POINT OF CARE 112 MG/DL (70-110)
[2024-12-17] MEDS: AmLODIPine BESYLATE 5 MG TABLET PO ONE (10:25)
[2024-12-17 11:25] LABS: GLUCOMETER DEV NAME(LOC) 5S.2D; GLUCOSE,POINT OF CARE 118 MG/DL (70-110)
[2024-12-17] MEDS: HYDROCODONE/ACETAMINOPHEN 5-325 MG TABLET PO PRN (13:29)
[2024-12-17 17:16] LABS: GLUCOMETER DEV NAME(LOC) 5S.2D; GLUCOSE,POINT OF CARE 119 MG/DL (70-110)
[2024-12-17 19:55] LABS: GLUCOMETER DEV NAME(LOC) 5N.1D; GLUCOSE,POINT OF CARE 134 MG/DL (70-110)
[2024-12-17 20:36] LABS: GLUCOMETER DEV NAME(LOC) 5S.2D; GLUCOSE,POINT OF CARE 142 MG/DL (70-110)
[2024-12-18] VITALS (8 sets, daily range): BP systolic 119–179; BP diastolic 75–103; PULSE 59–72; RESP 16–18; TEMP 98.2–99.3; O2SAT 97–99
[2024-12-18 06:16] LABS: GLUCOMETER DEV NAME(LOC) 5S.2D; GLUCOSE,POINT OF CARE 118 MG/DL (70-110)
[2024-12-18] MEDS: AmLODIPine BESYLATE 5 MG TABLET PO SCH (08:22)
[2024-12-18 11:40] LABS: GLUCOMETER DEV NAME(LOC) 5S.2D; GLUCOSE,POINT OF CARE 106 MG/DL (70-110)
[2024-12-18 18:36] LABS: GLUCOMETER DEV NAME(LOC) 5S.2D; GLUCOSE,POINT OF CARE 112 MG/DL (70-110)
[2024-12-19] VITALS: BP 147/82; PULSE 56; RESP 16; TEMP 97.9; O2SAT 97
[2024-12-19 00:10] LABS: GLUCOMETER DEV NAME(LOC) 5N.1D; GLUCOSE,POINT OF CARE 119 MG/DL (70-110)
[2024-12-19 04:00] VITALS: BP 151/98; PULSE 62; RESP 16; TEMP 98.4; O2SAT 99
[2024-12-19 06:56] LABS: GLUCOMETER DEV NAME(LOC) 5S.2D; GLUCOSE,POINT OF CARE 98 MG/DL (70-110)
[2024-12-19 07:10] LABS: CREATININE 1.86 mg/dL (0.60-1.30); MAGNESIUM 2.3 mg/dL (1.80-2.40); PHOSPHORUS 3.2 mg/dL (2.5-4.9); POTASSIUM 4.2 mmol/L (3.5-5.1)
[2024-12-19 08:09] VITALS: BP 159/89; PULSE 65; RESP 17; TEMP 98.2; O2SAT 99
[2024-12-19 11:02] VITALS: BP 168/84; PULSE 63; RESP 18; TEMP 98.2; O2SAT 97
[2024-12-19 12:01] LABS: GLUCOMETER DEV NAME(LOC) 5N.1D; GLUCOSE,POINT OF CARE 94 MG/DL (70-110)
[2024-12-19] MEDS ORDERED: LOSA-381 PO (12:09)
[2024-12-19 12:16] LABS: BASOPHILS % (AUTO) 1.2 % (0.0-2.0); EOSINOPHILS % (AUTO) 1.4 % (1.0-6.0); HEMATOCRIT 41.9 % (41-53); HEMOGLOBIN 13.8 g/dL (13.5-17.5); LYMPHOCYTES # (AUTO) 2.3 K/uL (1.0-4.8); LYMPHOCYTES % (AUTO) 23.7 % (22.0-44.0); MEAN CORPUSCULAR HEMOGLOBIN 31.3 pg (26.0-34.0); MEAN CORPUSCULAR VOLUME 95 fL (80-100); MONOCYTES # (AUTO) 1.2 K/uL (0.1-1.0); MONOCYTES % (AUTO) 12.8 % (2.0-9.0); NEUTROPHILS # (AUTO) 5.9 K/uL (1.8-7.7); NEUTROPHILS % (AUTO) 60.9 % (40.0-70.0); PLATELET COUNT (AUTO) 302 K/uL (150-450); RED BLOOD CELL COUNT(AUTO) 4.43 MIL/uL (4.50-5.90); RED CELL DISTRIBUTION WIDTH 13.9 % (11.5-14.5); WHITE BLOOD COUNT (AUTO) 9.8 K/uL (4.5-11.0)
[2024-12-19] MEDS: SODIUM CHLORIDE 0.9% 250 ML IV ONE (12:17)
[2024-12-19] MEDS: LOSARTAN POTASSIUM 25 MG TABLET PO SCH (12:19)
== END 2024-12-19 16:00 | disposition home or self-care (01) | DRG 199 ==
LOC: EMS 00:33 → EDH 03:36 → 5S 09:45
PROVIDERS: ADMIT Internal Medicine; ATTEND Internal Medicine
DX: I16.0 Hypertensive urgency (principal); M62.82 Rhabdomyolysis; N17.9 Acute kidney failure, unspecified; E11.22 Type 2 diabetes mellitus with diabetic chronic kidney disease; E86.0 Dehydration; M17.12 Unilateral primary osteoarthritis, left knee; F14.10 Cocaine abuse, uncomplicated; I12.9 Hypertensive chronic kidney disease with stage 1 through stage 4 chronic kidney disease, or unspecified chronic kidney disease; N18.9 Chronic kidney disease, unspecified; S83.204A Other tear of unspecified meniscus, current injury, left knee, initial encounter; X58.XXXA Exposure to other specified factors, initial encounter; Y93.89 Activity, other specified; Y92.89 Other specified places as the place of occurrence of the external cause; Y99.8 Other external cause status; Z79.899 Other long term (current) drug therapy; Z83.3 Family history of diabetes mellitus
CPT/HCPCS: 71045; 73718; 74176; 80048; 80076; 80307; 81001; 81002; 82550; 82962; 83605; 83735; 83880; 84100; 84145; 84484; 85025; 85610; 87040; 93005; 96361; 96374; 96375; 99285; J0360; J0696; J1171; J2270; J2405; J3490; J7030; J7050; 36415-L1; 36415-TC

== ENCOUNTER 2025-03-06 17:50 | Emergency (ER) | payer OTHER ==
[~2025-03-06] VITALS: Ht 172.7 cm; Wt 68.2 kg
[~2025-03-06 17:50] MED LIST changes: -CLON0.1T2 PO; -HYDR25TA84 PO; +LOSA-381 PO; -LOSA-382 PO
[2025-03-06] MEDS: LOSARTAN POTASSIUM 50 MG TABLET PO ONE (18:48)
[2025-03-06] MEDS: CloNIDine HCL 0.1 MG TABLET PO ONE (18:49)
[2025-03-06 19:09] VITALS: TEMP 98.4
[2025-03-06 19:09] LABS: APPEARANCE,URINE CLEAR (CLEAR); BILIRUBIN,URINE NEGATIVE (NEGATIVE); COLOR,URINE COLORLESS (YELLOW); GLUCOSE, URINE (UA) NEGATIVE (NEGATIVE); KETONES,URINE NEGATIVE (NEGATIVE); LEUKOCYTE ESTERASE ,URINE NEGATIVE (NEGATIVE); NITRATE,URINE NEGATIVE (NEGATIVE); OCCULT BLOOD,URINE SMALL (NEGATIVE); PROTEIN,URINE 30-70 mg/dL (NEGATIVE); SPECIFIC GRAVITIY, URINE 1.005 (1.003-1.030); UROBILINOGEN,URINE <=1.0 mg/dL (<=1.0)
[2025-03-06 19:17] LABS: ALCOHOL, URINE DRUG SCREEN NEGATIVE (NEGATIVE); AMPHET/METH SCREEN,URINE NEGATIVE (NEGATIVE); BARBITURATE SCREEN, URINE NEGATIVE (NEGATIVE); BENZODIAZEPINES SCREEN,URINE NEGATIVE (NEGATIVE); CANNABINOID SCREEN,URINE POSITIVE (NEGATIVE); COCAINE SCREEN,URINE NEGATIVE (NEGATIVE); METHADONE SCREEN, URINE NEGATIVE (NEGATIVE); OPIATE SCREEN,URINE NEGATIVE (NEGATIVE); PHENCYCLIDINE SCREEN,URINE NEGATIVE (NEGATIVE)
[2025-03-06 19:19] LABS: BASOPHILS % (AUTO) 0.8 % (0.0-2.0); EOSINOPHILS % (AUTO) 2.7 % (1.0-6.0); HEMATOCRIT 40.4 % (41-53); HEMOGLOBIN 13.7 g/dL (13.5-17.5); LYMPHOCYTES # (AUTO) 2.7 K/uL (1.0-4.8); LYMPHOCYTES % (AUTO) 31.6 % (22.0-44.0); MEAN CORPUSCULAR HEMOGLOBIN 31.5 pg (26.0-34.0); MEAN CORPUSCULAR VOLUME 93 fL (80-100); MONOCYTES # (AUTO) 0.9 K/uL (0.1-1.0); NEUTROPHILS # (AUTO) 4.6 K/uL (1.8-7.7); NEUTROPHILS % (AUTO) 53.9 % (40.0-70.0); PLATELET COUNT (AUTO) 284 K/uL (150-450); RED BLOOD CELL COUNT(AUTO) 4.36 MIL/uL (4.50-5.90); RED CELL DISTRIBUTION WIDTH 13.5 % (11.5-14.5); WHITE BLOOD COUNT (AUTO) 8.5 K/uL (4.5-11.0)
[2025-03-06 19:26] LABS: BACTERIA,URINE Rare /HPF (None Seen); RBC,URINE 0-2 /HPF (0-2); SQUAMOUS EPITHELIAL CELL,UR Rare /LPF (None Seen); WBC,URINE 0-2 /HPF (0-5)
[2025-03-06 19:29] LABS: ANION GAP 5 mmol/L (8-16); CALCIUM, TOTAL 8.4 mg/dL (8.8-10.5); CARBON DIOXIDE 28 mmol/L (22-29); CHLORIDE 105 mmol/L (98-107); CREATININE 1.91 mg/dL (0.60-1.30); GLOMERULAR FILTR. RATE CALC 36 mL/min (>60); GLUCOSE,RANDOM 90 mg/dL (70-110); POTASSIUM 3.8 mmol/L (3.5-5.1); SODIUM SERUM 137 mmol/L (136-145); UREA NITROGEN, BLOOD 30 mg/dL (7-18)
[2025-03-06 19:35] LABS: TROPONIN I-HIGH SENSITIVITY 21 ng/L (<76)
[2025-03-06 20:10] VITALS: BP 133/78; PULSE 49; RESP 15; O2SAT 95
[2025-03-06] MEDS ORDERED: LOSA-30 PO (20:18)
== END 2025-03-06 20:36 | disposition home or self-care (01) ==
LOC: EMS 17:50
DX: I10 Essential (primary) hypertension (principal); E11.9 Type 2 diabetes mellitus without complications; F12.90 Cannabis use, unspecified, uncomplicated; Z79.899 Other long term (current) drug therapy
CPT/HCPCS: 80048; 80307; 81001; 84484; 85025; 93005; 99285

== ENCOUNTER 2025-04-28 21:28 | Inpatient (IN) | payer OTHER ==
[~2025-04-28] VITALS: Ht 177.8 cm; Wt 72.7 kg
[~2025-04-28 21:28] MED LIST changes: +LOSA-30 PO
[2025-04-28 22:00] LABS: GLUCOMETER DEV NAME(LOC) ERT.7; GLUCOSE,POINT OF CARE 159 MG/DL (70-110)
[2025-04-28 22:18] LABS: PLATELET COUNT (AUTO) 275 K/uL (150-450); RED BLOOD CELL COUNT(AUTO) 4.30 MIL/uL (4.50-5.90); RED CELL DISTRIBUTION WIDTH 14.1 % (11.5-14.5); WHITE BLOOD COUNT (AUTO) 9.6 K/uL (4.5-11.0)
[2025-04-28 22:27] LABS: SODIUM SERUM 140 mmol/L (136-145)
[2025-04-28 22:28] LABS: CALCIUM, TOTAL 9.0 mg/dL (8.8-10.5); CREATININE 2.31 mg/dL (0.60-1.30); GLOMERULAR FILTR. RATE CALC 29 mL/min (>60); GLUCOSE,RANDOM 137 mg/dL (70-110); UREA NITROGEN, BLOOD 35 mg/dL (7-18)
[2025-04-28 22:34] LABS: ASPARTATE AMINOTRANSFERASE 28.0 U/L (15-37); TOTAL PROTEIN, SERUM 7.6 g/dL (6.4-8.2)
[2025-04-28 22:39] LABS: TROPONIN I-HIGH SENSITIVITY 17 ng/L (<76)
[2025-04-28] MEDS: FAMOTIDINE 20 MG/2 ML VIAL IVP ONE (22:52)
[2025-04-29 03:27] LABS: APPEARANCE,URINE CLEAR (CLEAR); GLUCOSE, URINE (UA) >=1000 mg/dL (NEGATIVE); LEUKOCYTE ESTERASE ,URINE NEGATIVE (NEGATIVE); NITRATE,URINE NEGATIVE (NEGATIVE); OCCULT BLOOD,URINE SMALL (NEGATIVE); SPECIFIC GRAVITIY, URINE 1.012 (1.003-1.030)
[2025-04-29 03:28] LABS: PH,URINE DRUG SCREEN 6.0 (5.0-8.0)
[2025-04-29 03:31] LABS: SQUAMOUS EPITHELIAL CELL,UR Few /LPF (None Seen); YEAST,URINE None Seen /HPF (None Seen)
[2025-04-29 03:32] LABS: AMPHET/METH SCREEN,URINE NEGATIVE (NEGATIVE); BARBITURATE SCREEN, URINE NEGATIVE (NEGATIVE); CANNABINOID SCREEN,URINE POSITIVE (NEGATIVE); COCAINE SCREEN,URINE NEGATIVE (NEGATIVE); METHADONE SCREEN, URINE NEGATIVE (NEGATIVE)
[2025-04-29 03:39] LABS: ALCOHOL, URINE DRUG SCREEN NEGATIVE (NEGATIVE)
[2025-04-29] MEDS ORDERED: ONDANSETRON HCL 4 MG/2 ML VIAL IVP PRN (04:15)
[2025-04-29] MEDS: RINGERS SOLUTION,LACTATED 1,000 ML IV SCH (04:30)
[2025-04-29] MEDS: DOCUSATE SODIUM 100 MG CAPSULE PO SCH ×2 (09:00→20:29)
[2025-04-29] MEDS: HEPARIN SODIUM,PORCINE 5,000 UNITS/ML VIAL SQ SCH (09:44)
[2025-04-29 09:47] VITALS: BP 183/78; PULSE 54; RESP 16; TEMP 97.7; O2SAT 99
[2025-04-29] MEDS ORDERED: ACETAMINOPHEN 325 MG TABLET PO PRN (12:15)
[2025-04-29] MEDS ORDERED: ZOLPIDEM TARTRATE 5 MG TABLET PO PRN (12:15)
[2025-04-29] MEDS ORDERED: DEXTROSE 50%-WATER 25 GM/50 ML SYRINGE IVP PRN (12:15)
[2025-04-29] MEDS ORDERED: BISACODYL 10 MG RECTAL RECTAL SUPPOSITORY PR PRN (12:15)
[2025-04-29] MEDS ORDERED: MAGNESIUM HYDROXIDE SUSPENSION 30 ML UDCUP PO PRN (12:15)
[2025-04-29 15:55] VITALS: BP 164/92; PULSE 61; RESP 16; TEMP 98.2; O2SAT 100
[2025-04-29 17:26] LABS: GLUCOMETER DEV NAME(LOC) 6S.2; GLUCOSE,POINT OF CARE 85 MG/DL (70-110)
[2025-04-29 17:51] LABS: GLUCOMETER DEV NAME(LOC) 6N.2C; GLUCOSE,POINT OF CARE 101 MG/DL (70-110)
[2025-04-29 20:44] VITALS: BP 163/89; PULSE 53; RESP 18; TEMP 98.4; O2SAT 97
[2025-04-29 21:45] VITALS: BP 154/91; PULSE 68; RESP 16; TEMP 98.2; O2SAT 100
[2025-04-30 04:56] VITALS: BP 161/91; PULSE 57; RESP 18; TEMP 97.9; O2SAT 98
[2025-04-30 05:26] LABS: GLUCOMETER DEV NAME(LOC) 6N.2C; GLUCOSE,POINT OF CARE 97 MG/DL (70-110)
[2025-04-30 06:26] LABS: PLATELET COUNT (AUTO) 288 K/uL (150-450); RED BLOOD CELL COUNT(AUTO) 4.41 MIL/uL (4.50-5.90); RED CELL DISTRIBUTION WIDTH 13.7 % (11.5-14.5); WHITE BLOOD COUNT (AUTO) 6.9 K/uL (4.5-11.0)
[2025-04-30 06:30] LABS: GLUCOMETER DEV NAME(LOC) 6N.2C; GLUCOSE,POINT OF CARE 93 MG/DL (70-110)
[2025-04-30 06:36] LABS: CALCIUM, TOTAL 8.9 mg/dL (8.8-10.5); CREATININE 1.73 mg/dL (0.60-1.30); GLOMERULAR FILTR. RATE CALC 41.0 mL/min (>60); GLUCOSE,RANDOM 93.0 mg/dL (70-110); SODIUM SERUM 136.0 mmol/L (136-145); UREA NITROGEN, BLOOD 21.0 mg/dL (7-18)
[2025-04-30] MEDS: PANTOPRAZOLE SODIUM 40 MG DR TABLET PO SCH (08:55)
[2025-04-30] MEDS: TAMSULOSIN HCL 0.4 MG CAPSULE PO SCH (08:55)
[2025-04-30 09:01] VITALS: BP 177/95; PULSE 55; RESP 18; TEMP 98.4; O2SAT 100
[2025-04-30 10:06] VITALS: BP 166/88; RESP 18; O2SAT 100
[2025-04-30] MEDS: SODIUM CHLORIDE 0.9% 1,000 ML IV ONE (11:32)
[2025-04-30 14:15] LABS: GLUCOMETER DEV NAME(LOC) 6N.2C; GLUCOSE,POINT OF CARE 100 MG/DL (70-110)
[2025-04-30 16:31] VITALS: BP 157/89; PULSE 59; RESP 18; TEMP 98.2; O2SAT 100
[2025-04-30 20:03] VITALS: BP 154/91; PULSE 62; RESP 18; TEMP 98.2; O2SAT 97
[2025-04-30 20:26] LABS: GLUCOMETER DEV NAME(LOC) 6S.1D; GLUCOSE,POINT OF CARE 109 MG/DL (70-110)
[2025-04-30] MEDS: INSULIN LISPRO 100 UNITS/ML SQ PRN (20:43)
[2025-05-01 02:46] LABS: GLUCOMETER DEV NAME(LOC) 6S.2; GLUCOSE,POINT OF CARE 145 MG/DL (70-110)
[2025-05-01 04:00] VITALS: BP 156/86; PULSE 64; RESP 18; TEMP 97.9; O2SAT 98
[2025-05-01 09:00] VITALS: BP 190/92; PULSE 57; RESP 18; TEMP 97.9; O2SAT 98
[2025-05-01 11:45] LABS: GLUCOMETER DEV NAME(LOC) 6S.1D; GLUCOSE,POINT OF CARE 107 MG/DL (70-110)
[2025-05-01 11:51] LABS: GLUCOMETER DEV NAME(LOC) 6N.1B; GLUCOSE,POINT OF CARE 93 MG/DL (70-110)
[2025-05-01 11:58] LABS: CALCIUM, TOTAL 9.1 mg/dL (8.8-10.5); CREATININE 1.84 mg/dL (0.60-1.30); GLOMERULAR FILTR. RATE CALC 38.0 mL/min (>60); GLUCOSE,RANDOM 85.0 mg/dL (70-110); SODIUM SERUM 138.0 mmol/L (136-145); UREA NITROGEN, BLOOD 23.0 mg/dL (7-18)
[2025-05-01 17:55] LABS: GLUCOMETER DEV NAME(LOC) 6N.1B; GLUCOSE,POINT OF CARE 103 MG/DL (70-110)
[2025-05-01 19:31] VITALS: BP 163/94; PULSE 63; RESP 18; TEMP 98; O2SAT 98
[2025-05-01 21:20] LABS: GLUCOMETER DEV NAME(LOC) 6N.1B; GLUCOSE,POINT OF CARE 119 MG/DL (70-110)
[2025-05-02 04:30] VITALS: BP 167/104; PULSE 69; RESP 18; TEMP 98.1; O2SAT 97
[2025-05-02] MEDS ORDERED: HYDR25TA84 PO ×2 (06:35→14:23)
[2025-05-02 06:57] LABS: PLATELET COUNT (AUTO) 297 K/uL (150-450); RED BLOOD CELL COUNT(AUTO) 4.63 MIL/uL (4.50-5.90); RED CELL DISTRIBUTION WIDTH 13.5 % (11.5-14.5); WHITE BLOOD COUNT (AUTO) 7.7 K/uL (4.5-11.0)
[2025-05-02 08:00] VITALS: BP 189/101; PULSE 54; RESP 20; TEMP 98.2; O2SAT 100
[2025-05-02 11:40] LABS: GLUCOMETER DEV NAME(LOC) 4E.2; GLUCOSE,POINT OF CARE 106 MG/DL (70-110)
[2025-05-02] MEDS ORDERED: INSULIN LISPRO 100 UNITS/ML SQ ONE (12:15)
[2025-05-02 20:09] VITALS: BP 160/89; PULSE 58; RESP 20; TEMP 98.2; O2SAT 98
[2025-05-02 21:06] LABS: GLUCOMETER DEV NAME(LOC) 6N.1B; GLUCOSE,POINT OF CARE 97 MG/DL (70-110)
[2025-05-02 21:06] LABS: GLUCOMETER DEV NAME(LOC) 6N.1B; GLUCOSE,POINT OF CARE 109 MG/DL (70-110)
[2025-05-02 21:06] LABS: GLUCOMETER DEV NAME(LOC) 6N.1B; GLUCOSE,POINT OF CARE 104 MG/DL (70-110)
[2025-05-03 05:47] LABS: PLATELET COUNT (AUTO) 289 K/uL (150-450); RED BLOOD CELL COUNT(AUTO) 4.62 MIL/uL (4.50-5.90); RED CELL DISTRIBUTION WIDTH 13.5 % (11.5-14.5); WHITE BLOOD COUNT (AUTO) 7.4 K/uL (4.5-11.0)
[2025-05-03 06:09] VITALS: BP 159/90; PULSE 67; RESP 20; TEMP 98.2; O2SAT 99
[2025-05-03 06:41] LABS: GLUCOMETER DEV NAME(LOC) 6S.1D; GLUCOSE,POINT OF CARE 98 MG/DL (70-110)
[2025-05-03 08:02] VITALS: BP 173/98; PULSE 60; RESP 18; TEMP 97.7; O2SAT 100
== END 2025-05-03 15:00 | disposition home or self-care (01) | DRG 469 ==
LOC: EMS 21:28 → EDH 04-29 04:15 → 6S 04-29 09:40 → 4E 05-01 06:20
PROVIDERS: ADMIT Internal Medicine; ATTEND Internal Medicine
DX: N17.9 Acute kidney failure, unspecified (principal); E11.22 Type 2 diabetes mellitus with diabetic chronic kidney disease; R11.2 Nausea with vomiting, unspecified; N18.4 Chronic kidney disease, stage 4 (severe); K76.9 Liver disease, unspecified; I12.9 Hypertensive chronic kidney disease with stage 1 through stage 4 chronic kidney disease, or unspecified chronic kidney disease; N13.30 Unspecified hydronephrosis; K80.20 Calculus of gallbladder without cholecystitis without obstruction; F12.10 Cannabis abuse, uncomplicated; F11.10 Opioid abuse, uncomplicated; Z79.899 Other long term (current) drug therapy; Z83.3 Family history of diabetes mellitus
CPT/HCPCS: 74022; 74176; 76705; 80048; 80076; 80307; 81001; 82962; 83690; 83735; 84484; 85025; 93005; 99285; G0378; J1644; J1815; J3490; J7030; J7120